=== PATIENT | female | born 1945 | race Caucasian/White ===

== ENCOUNTER → 2017-05-29 | Outpatient (CLI) | payer OTHER, MEDICAID ==
[2014-07-20 16:23] VITALS: BP 150/94
--- NOTE | 2017-05-29 14:10 | CT ---
HISTORY: Flank pain, hematuria Study: CT abdomen pelvis without contrast Comparison: 08/11/2014 Technique: Axial noncontrast images with coronal and sagittal reformats. Dose reduction procedures we re used with mA/kv adjusted for body size. Findings: The lung bases are clear. The liver, spleen, adrenal glands, and pancreas are within normal limits to the limitations of an unenhanced examination. No opaque stones are visible within the gallbladder. T he kidneys are unobstructed and without stones. No ureteral calculi are identified. Calcific atherosc lerotic changes present in a nondilated abdominal aorta. No enlarged intraperitoneal or retroperitone al lymphadenopathy is identified. There are no findings suggestive of diverticulitis or colitis. The appendix is normal. Examination of the pelvis demonstrated no evidence for pelvic masses, pelvic flui d, or pelvic lymphadenopathy. No bladder abnormality is identified. No lytic or blastic skeletal lesi ons are identified. IMPRESSION: No evidence for obstructing renal or ureteral calculi No significant abnormality to the limitations of an examination performed without intravenous and wit hout oral contrast. Reported By:
== END ==
LOC: RAD 12:17
PROVIDERS: ATTEND Internal Medicine
DX: R30.0 Dysuria (principal); R31.9 Hematuria, unspecified; R10.84 Generalized abdominal pain
CPT/HCPCS: 74176

== ENCOUNTER 2022-05-07 11:44 | Observation (INO) ==
[2022-05-07] MEDS ORDERED: NS 250 ML IV 250 ML IV ONE (16:19)
[2022-05-07] MEDS ORDERED: ZOFRAN INJ 4 MG VIAL IVP PRN (16:19)
[2022-05-07 16:55] LABS: BASOPHILS % (AUTO) 0.8 % (0.2-1.0); EOSINOPHILS # (AUTO) 0.1 x10^3/uL (0.0-0.2); EOSINOPHILS % (AUTO) 1.7 % (0.9-2.9); HEMATOCRIT 28.7 % (36.0-47.0); HEMOGLOBIN 9.5 g/dL (12.0-16.0); LYMPHOCYTES # (AUTO) 1.6 X10^3/uL (1.3-2.9); LYMPHOCYTES % (AUTO) 26.1 % (21.0-51.0); MEAN CORPUSCULAR HEMOGLOBIN 30.1 pg (27.0-34.0); MEAN CORPUSCULAR HGB CONC 33.1 g/dL (33.0-35.0); MEAN CORPUSCULAR VOLUME 90.8 fL (80.0-100.0); MEAN PLATELET VOLUME 9.4 fL (7.4-11.0); MONOCYTES # (AUTO) 0.3 x10^3/uL (0.3-0.8); MONOCYTES % (AUTO) 5.6 % (0.0-13.0); NEUTROPHILS % (AUTO) 65.8 % (42.0-75.0); RED BLOOD COUNT 3.16 X10^6/uL (3.5-5.4); WHITE BLOOD COUNT 6.1 X10^3/uL (3.6-10.0)
[2022-05-07 17:03] LABS: ALANINE AMINOTRANSFERASE 18 Units/L (12-78); ALBUMIN 3.4 g/dL (3.4-5.0); ALKALINE PHOSPHATASE 69 Units/L (46-116); AMYLASE 70 Units/L (25-115); ASPARTATE AMINO TRANSFERASE 18 Units/L (15-37); BLOOD UREA NITROGEN 34 mg/dL (7-18); CALCIUM 8.1 mg/dL (8.5-10.1); CARBON DIOXIDE 25.7 mmol/L (21-32); CHLORIDE 105 mmol/L (98-107); CREATININE 2.53 mg/dL (0.55-1.02); LIPASE 170 Units/L (73-393); SODIUM 139 mmol/L (136-145); TOTAL PROTEIN 6.6 g/dL (6.4-8.2); eGFR NON BLACK RACES 20 (>60)
[2022-05-07] MEDS: NS 1,000 ML IV 1,000 ML IV SCH (17:16)
[2022-05-07 19:16] LABS: BILIRUBIN,URINE NEGATIVE (NEGATIVE); BLOOD/HEMOGLOBIN,URINE 1+ (NEGATIVE); GLUCOSE, URINE NEGATIVE (NEGATIVE); KETONES,URINE NEGATIVE (NEGATIVE); LEUKOCYTE ESTERASE ,URINE NEGATIVE (NEGATIVE); NITRITES,URINE NEGATIVE (NEGATIVE); PROTEIN,URINE 1+ (NEGATIVE); UROBILINOGEN,URINE NORMAL (NORMAL)
[2022-05-07 19:27] LABS: APPEARANCE,URINE CLEAR (CLEAR); BACTERIA,URINE NEGATIVE /HPF (NEGATIVE); COLOR,URINE YELLOW (YELLOW); RBC,URINE 0-2 /HPF (0-3); SQUAMOUS EPITHELIAL CELL,UR RARE /HPF (NEGATIVE)
--- NOTE | 2022-05-07 20:45 | EKG ---
Test Reason : sob Blood Pressure : */* mmHG Vent. Rate : 72 BPM Atrial Rate : 72 BPM P-R Int : 132 ms QRS Dur : 140 ms QT Int : 434 ms P-R-T Axes : 42 -23 141 degrees QTc Int : 475 ms Atrial-paced rhythm with premature atrial complexes Left bundle branch block Abnormal ECG No previous ECGs available Confirmed by Giovanni Samuels ([id number]) on 05/08/2022 1:05:38 PM Referred By: Confirmed By: Giovanni Samuels
[2022-05-08 05:07] LABS: BASOPHILS % (AUTO) 0.5 % (0.2-1.0); EOSINOPHILS # (AUTO) 0.1 x10^3/uL (0.0-0.2); EOSINOPHILS % (AUTO) 2.3 % (0.9-2.9); HEMATOCRIT 28.3 % (36.0-47.0); HEMOGLOBIN 9.5 g/dL (12.0-16.0); LYMPHOCYTES # (AUTO) 1.8 X10^3/uL (1.3-2.9); LYMPHOCYTES % (AUTO) 32.3 % (21.0-51.0); MEAN CORPUSCULAR HEMOGLOBIN 30.3 pg (27.0-34.0); MEAN CORPUSCULAR HGB CONC 33.7 g/dL (33.0-35.0); MEAN PLATELET VOLUME 9.3 fL (7.4-11.0); MONOCYTES # (AUTO) 0.5 x10^3/uL (0.3-0.8); MONOCYTES % (AUTO) 7.9 % (0.0-13.0); NEUTROPHILS # (AUTO) 3.3 x10^3/uL (2.2-4.8); RED BLOOD COUNT 3.15 X10^6/uL (3.5-5.4); RED CELL DISTRIBUTION WIDTH 15.9 % (11.6-16.5); WHITE BLOOD COUNT 5.7 X10^3/uL (3.6-10.0)
[2022-05-08 05:14] LABS: ALANINE AMINOTRANSFERASE 14 Units/L (12-78); ALBUMIN 2.9 g/dL (3.4-5.0); ALKALINE PHOSPHATASE 65 Units/L (46-116); ASPARTATE AMINO TRANSFERASE 14 Units/L (15-37); BLOOD UREA NITROGEN 27 mg/dL (7-18); CALCIUM 7.9 mg/dL (8.5-10.1); CARBON DIOXIDE 23.4 mmol/L (21-32); CHLORIDE 110 mmol/L (98-107); COR CA(FOR HYPOALB) 8.8 mg/dL (8.5-10.1); CREATININE 2.01 mg/dL (0.55-1.02); SODIUM 142 mmol/L (136-145); TOTAL PROTEIN 5.8 g/dL (6.4-8.2); eGFR NON BLACK RACES 26 (>60)
[2022-05-08] MEDS: NS 1,000 ML IV 1,000 ML IV SCH ×2 (06:25→23:04)
--- NOTE | 2022-05-08 06:39 | RAD ---
HISTORYAcute on chronic renal failureSTUDYKUBCOMPARISONNoneF INDINGSThe abdominal gas pattern is nonspecific and nonobstructive. No abnormal masses or abnormal calcifications are identified. Regional skeleton is intact.IMPRESSIONUnremarkable KUBElectronically signed by: LEANA SAUNDERS (May 08, 2022 06:38:06)
[2022-05-08] MEDS: LOVENOX INJ 30 MG SYR SC SCH (10:14)
[2022-05-08] MEDS ORDERED: ULTRAM PO PRN (10:57)
[2022-05-08] MEDS ORDERED: ZOFRAN TAB 4 MG PO PRN (10:57)
[2022-05-08] MEDS: TOPROL XL PO SCH (12:34)
[2022-05-08] MEDS: SYNTHROID 50 mcg TAB PO SCH (12:34)
[2022-05-08] MEDS: COZAAR PO SCH (12:34)
[2022-05-08] MEDS: FOLIC ACID TAB 1 MG PO SCH (12:34)
[2022-05-08] MEDS: PEPCID TAB 20 MG PO SCH ×2 (12:35→20:39)
[2022-05-08 14:58] VITALS: BMI 21.0
--- NOTE | 2022-05-08 15:17 | CT ---
HISTORYDIZZINESS, WEAKNESS, NEAR SYNCOPESTUDYBRAIN W/O CONCOMPARISONHead CT 10/16/2021TECHNIQUEMultiple CT axial images of the head were obtained without IV contrast. Coronal and sagittal images were reconstructed. Dose reduction techniques included Automated Exposure Control (AEC) and adjustment of mA and kV.FINDINGSAge-related findings include central and cortical atrophy with areas of low density in the periventricular white matter compatible with micro-ischemic changes. 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 Otherwise carlson and white matter have normal differentiation. There is no mass, shift, or hemorrhage. Cerebellar tonsils are at an appropriate level.IMPRESSION1. No acute findingElectronically signed by: Carroll Diaz (May 08, 2022 15:15:56)
--- NOTE | 2022-05-08 17:33 | CT ---
HISTORYABD PAIN, N/VSTUDYABDOMEN/PELVIS W/O CONCOMPARISONCT abdomen and pelvis dated 01/13/2022TECHNIQUEAxial images through the abdomen and pelvis were perform without intravenous contrast. CT scan was performed following ALARA (As low as Reasonably Achievable).Coronal and Sagittal reformatted images were performed.FINDINGSThe lung bases demonstrate minimal atelectasis in the right lower lobeThe liver, spleen and pancreas demonstrate no focal abnormalities patient is status post cholecystectomy the stomach is not distended no intra or extrahepatic biliary dilatation no adrenal masses. There bilateral normal-sized kidneys without hydronephrosis no obstructive ureteral stones. No renal calculus.Pelvis: No free fluid the uterus is not present, no adnexal masses, the urinary bladder is decompressed, no diverticulitis. There is an umbilical hernia with a neck of approximately 2 centimetersNo abnormal dilated small bowel loops. No free air.No evidence of colitis. No evidence of mucosal thickening.No secondary signs of appendicitis.Bone windows no evidence of aggressive bone lesions. No acute fractures.IMPRESSIONNo acute intra-abdominal abnormalities.Electronically signed by: Jailyn Rose (May 08, 2022 17:31:22)
[2022-05-08] MEDS ORDERED: LIPITOR TAB 40 MG PO SCH (21:00)
[2022-05-08] MEDS ORDERED: NORVASC TAB 5 MG PO SCH (21:00)
--- NOTE | 2022-05-08 21:55 | DR.UPDATE ---
H&P Update Prescription drug monitoring program results: PDMP reviewed and no concerns identified H&P Reviewed: Yes Any changes to H&P?: Yes Changes noted:: IS A 77 YEAR OLD PATIENT OF OURS. SHE PRESENTED TO THE OFFICE WITH COMPLAINTS OF FATIGUE, LOSS OF ENERGY, GENERALIZED WEAKNESS, DIZZINESS, NAUSEA, VOMITING, AND ABDOMINAL PAIN. PATIENT REPORTED THAT ABDOMINAL PAIN WAS DIFFUSE, INTERMITTENT, AND CHARACTERIZED DULL AND CRAMPING. SHE RATE PAIN A 7/10 ON ARRIVAL. PATIENT REPORTS THAT SHE HAS BEEN UNABLE TO TOLERATE FOOD OR DRINK. PATIENT ADMITS TO SEVERAL NEAR SYNCOPAL EPISODES, BOTH WHILE SITTING AND STANDING. DECISION WAS MADE TO ADMIT PATIENT TO THE HOSPITAL OBSERVATION STATUS FOR FURTHER EVALUATION AND TREATMENT. ON ARRIVAL TO THE HOSPITAL, VITALS WERE: 97.2-82-20-100%-130/59. LABS WERE OBTAINED. WBC 6.1, RBC 3.16, HGB 9.5, HCT 28.7, PLT COUNT 175, SODIUM 139, POTASSIUM 4.0, CHLORIDE 105, BUN 34, CREATININE 2.53, GLUCOSE 92, CALCIUM 8.1, TOTAL BILI 0.30, AST 18, ALT 18, ALK PHOS 69, CREATINE KINASE 58, TROPONIN 22.9, TOTAL PROTEIN 6.6, ALBUMIN 3.4. A URINALYSIS WAS OBTAINED AND WAS UNREMARKABLE. A KUB WAS OBTAINED AND WAS UNREMARKABLE. EKG REVEALED: Atrial-paced rhythm with premature atrial complexes. HR 72 BPM. SHE WAS STARTED ON NORMAL SALINE AT 75 ML/HR, ZOFRAN 4MG IV Q4H PRN, LOVENOX 30MG SC DAILY, AND HER HOME MEDICATIONS WERE RESUMED. WE WILL OBTAIN A BRAIN CT AND AN ABDOMEN/PELVIS CT WITHOUT CONTRAST. OTHERWISE, WE WILL FOLLOW-UP WITH AM LABS AND CONTINUE TO MONITOR. TIME SPENT ON CLINICAL ASSESSMENT, REVIEWING LABS AND IMAGING, DECISION MAKING, AND DOCUMENTATION GREATER THAN 75 MINUTES. DX ACUTE ON CHRONIC RENAL FAILURE, NEAR SYNCOPE, GENERALIZED WEAKNESS. Patient was examined?: Yes
[2022-05-08] MEDS ORDERED: MAALOX or MYLANTA PO PRN (23:55)
[2022-05-09 05:21] LABS: BASOPHILS # (AUTO) 0.1 X10^3/uL (0.0-0.1); BASOPHILS % (AUTO) 1.1 % (0.2-1.0); EOSINOPHILS # (AUTO) 0.2 x10^3/uL (0.0-0.2); EOSINOPHILS % (AUTO) 2.6 % (0.9-2.9); HEMATOCRIT 31.1 % (36.0-47.0); HEMOGLOBIN 10.5 g/dL (12.0-16.0); LYMPHOCYTES # (AUTO) 1.7 X10^3/uL (1.3-2.9); LYMPHOCYTES % (AUTO) 22.7 % (21.0-51.0); MEAN CORPUSCULAR HEMOGLOBIN 30.3 pg (27.0-34.0); MEAN CORPUSCULAR HGB CONC 33.6 g/dL (33.0-35.0); MEAN CORPUSCULAR VOLUME 90.2 fL (80.0-100.0); MEAN PLATELET VOLUME 9.4 fL (7.4-11.0); MONOCYTES # (AUTO) 0.5 x10^3/uL (0.3-0.8); MONOCYTES % (AUTO) 6.9 % (0.0-13.0); NEUTROPHILS # (AUTO) 4.9 x10^3/uL (2.2-4.8); NEUTROPHILS % (AUTO) 66.7 % (42.0-75.0); RED BLOOD COUNT 3.45 X10^6/uL (3.5-5.4); RED CELL DISTRIBUTION WIDTH 15.9 % (11.6-16.5); WHITE BLOOD COUNT 7.3 X10^3/uL (3.6-10.0)
[2022-05-09 05:36] LABS: ALANINE AMINOTRANSFERASE 18 Units/L (12-78); ALBUMIN 3.5 g/dL (3.4-5.0); ALKALINE PHOSPHATASE 79 Units/L (46-116); ASPARTATE AMINO TRANSFERASE 20 Units/L (15-37); BLOOD UREA NITROGEN 18 mg/dL (7-18); CALCIUM 8.2 mg/dL (8.5-10.1); CARBON DIOXIDE 26.2 mmol/L (21-32); CHLORIDE 108 mmol/L (98-107); CREATININE 1.58 mg/dL (0.55-1.02); SODIUM 142 mmol/L (136-145); TOTAL PROTEIN 6.9 g/dL (6.4-8.2); eGFR NON BLACK RACES 34 (>60)
[2022-05-09 08:12] VITALS: BP 150/62
[2022-05-09] MEDS ORDERED: PEPCID TAB 20 MG PO SCH (09:00)
[2022-05-09] MEDS: SYNTHROID 50 mcg TAB PO SCH (09:14)
[2022-05-09] MEDS: COZAAR PO SCH (09:14)
[2022-05-09] MEDS: TOPROL XL PO SCH (09:14)
[2022-05-09] MEDS: FOLIC ACID TAB 1 MG PO SCH (09:14)
[2022-05-09] MEDS: LOVENOX INJ 30 MG SYR SC SCH (09:15)
[2022-05-09] MEDS: NS 1,000 ML IV 1,000 ML IV SCH (10:36)
== END 2022-05-09 10:35 | disposition home or self-care (01) ==
LOC: MED/SURG
PROVIDERS: ADMIT Internal Medicine; ATTEND Internal Medicine
DX: R53.1 Weakness; R26.2 Difficulty in walking, not elsewhere classified; R11.0 Nausea; R41.82 Altered mental status, unspecified; N17.9 Acute kidney failure, unspecified; R13.10 Dysphagia, unspecified; R10.9 Unspecified abdominal pain; J98.11 Atelectasis; R55 Syncope and collapse; R06.02 Shortness of breath; Z98.62 Peripheral vascular angioplasty status; N18.9 Chronic kidney disease, unspecified; R94.31 Abnormal electrocardiogram [ECG] [EKG]

== ENCOUNTER 2023-06-23 06:41 | Observation (INO) ==
--- NOTE | 2023-06-23 06:53 | DR.SOBA ---
HPI <CB LÓPEZ - Last Filed: 06/23/23 08:04> Time Seen Time Seen by Provider: 06/23/23 06:52 HPI Comment HPI Comment: Increasing shortness of breath since yesterday and lower extremity edema since x 1 week. Complaints Chief Complaint Doctors Comments: Patient is 78-year-old female with history of congestive heart failure coronary artery disease and hypertension in the emergency room with increasing shortness of breath since yesterday and lower extremity edema for about a week. Patient denies chest pain nausea vomiting or dysuria. Reviewed Nurses Notes Reviewed: Yes PMH <CB LÓPEZ - Last Filed: 06/23/23 08:04> PMH Past Medical History: Anemia, Anxiety, Arthritis, CHF, Coronary Artery Disease, GERD, Hypertension, Kidney Stones, [place] and Renal Disease Past Surgical History: Yes Surgical History: Angioplasty/Stents, Cholecystectomy, Hysterectomy, Ortho Surgery and Lithotripsy Family History Family Medical History: Cancer and Hypertension Social History Do you use any recreational Drugs:: No ROS <CB LÓPEZ - Last Filed: 06/23/23 08:04> Review of Systems Constitutional: Weakness and Fatigue; negative Fever Eyes: No Symptoms Reported ENTM: negative Nose Discharge or Nose Congestion Respiratoy: Moist Cough, Short of Breath and Wheezing Cardiovascular: Edema; negative Chest Pain Gastrointestinal/Abdominal: No Symptoms Reported; negative Abdominal Pain, Diarrhea, Nausea or Vomiting Genitourinary: No Symptoms Reported; negative Dysuria Neurological: Weakness; negative Headache or Dizziness Musculoskeletal: No Symptoms Reported; negative Muscle Pain Integumentary: No Symptoms Reported; negative Rash or Juandice Hematologic/Lymphatic: No Symptoms Reported, Easy Bleeding and Easy Bruising Endocrine: No Symptoms Reported; negative Increased Thirst or Increased Urine Psychiatric: No Symptoms Reported All Other Systems: Reviewed and Negative PE <CB LÓPEZ - Last Filed: 06/23/23 08:04> Vital Signs Vitals: Vital Signs Temperature 97.7 F Pulse Rate 69 Pulse Rate 74 Pulse Rate 126 Pulse Rate 69 Pulse Rate 69 Pulse Rate 69 Pulse Rate 69 Pulse Rate 74 Pulse Rate 69 Pulse Rate 70 Pulse Rate 70 Pulse Rate 70 Pulse Rate 71 Pulse Rate 73 Respiratory Rate 18 Respiratory Rate 14 Respiratory Rate 34 Respiratory Rate 20 Respiratory Rate 16 Respiratory Rate 29 Respiratory Rate 16 Respiratory Rate 7 Respiratory Rate 22 Respiratory Rate 22 Blood Pressure 167/66 Blood Pressure 179/81 Blood Pressure 200/99 Blood Pressure 204/98 Blood Pressure 209/98 Blood Pressure 214/103 Blood Pressure 208/94 Blood Pressure 222/102 Blood Pressure 204/90 O2 Sat by Pulse Oximetry 97 O2 Sat by Pulse Oximetry 96 O2 Sat by Pulse Oximetry 96 O2 Sat by Pulse Oximetry 96 O2 Sat by Pulse Oximetry 97 O2 Sat by Pulse Oximetry 96 O2 Sat by Pulse Oximetry 95 O2 Sat by Pulse Oximetry 89 O2 Sat by Pulse Oximetry 95 O2 Sat by Pulse Oximetry 97 O2 Sat by Pulse Oximetry 97 O2 Sat by Pulse Oximetry 96 O2 Sat by Pulse Oximetry 91 O2 Sat by Pulse Oximetry 93 General Limitations: No Limitations General Appearance: Alert and In Distress Head Head Exam: Normal Inspection Eyes Eye exam: Normal Appearance; negative Scleral Icterus or Conjunctival Injection ENT ENT Exam: Normal Exam, Normal Oropharynx, Normal External Ear Exam and TM's Normal Bilaterally Neck Neck Exam: Normal Inspection and Trachea Midline; negative Tenderness Chest Chest Inspection: Normal Inspection and Symmetric Chest Wall Rise; negative Tenderness Respiratory Respiratory Exam: Accessory Muscle Use and Respiratory Distress; negative Chest Wall Tenderness Respiratory Exam: Bilateral: Wheezing and Bilateral: Rhonchi Cardiovascular Cardiovascular Exam: Regular Rate, Normal Rhythm and Normal Heart Sounds; n egative Systolic Murmur or Diastolic Murmur Abdominal Exam Abdominal Exam: Normal Inspection, Normal Bowel Sounds and Soft; negative Tenderness Extremities Extremities Exam: Normal Capillary Refill and Edema; negative Tenderness Back Back Exam: Normal Inspection; negative (R) CVA Tenderness or (L) CVA Tenderness Neurologic Neurological Exam: Alert and Oriented X3; negative Motor Sensory Deficit Psychiatric Psychiatric Exam: Normal Affect and Normal Mood Skin Skin Exam: Warm; negative Rash <Ramiro Farooq - Last Filed: 06/23/23 09:32> Vital Signs Vitals: Vital Signs Temperature 97.7 F Pulse Rate 69 Pulse Rate 74 Pulse Rate 126 Pulse Rate 69 Pulse Rate 69 Pulse Rate 69 Pulse Rate 69 Pulse Rate 74 Pulse Rate 69 Pulse Rate 70 Pulse Rate 70 Pulse Rate 70 Pulse Rate 71 Pulse Rate 73 Respiratory Rate 18 Respiratory Rate 14 Respiratory Rate 34 Respiratory Rate 20 Respiratory Rate 16 Respiratory Rate 29 Respiratory Rate 16 Respiratory Rate 7 Respiratory Rate 22 Respiratory Rate 22 Blood Pressure 167/66 Blood Pressure 179/81 Blood Pressure 200/99 Blood Pressure 204/98 Blood Pressure 209/98 Blood Pressure 214/103 Blood Pressure 208/94 Blood Pressure 222/102 Blood Pressure 204/90 O2 Sat by Pulse Oximetry 97 O2 Sat by Pulse Oximetry 96 O2 Sat by Pulse Oximetry 96 O2 Sat by Pulse Oximetry 96 O2 Sat by Pulse Oximetry 97 O2 Sat by Pulse Oximetry 96 O2 Sat by Pulse Oximetry 95 O2 Sat by Pulse Oximetry 89 O2 Sat by Pulse Oximetry 95 O2 Sat by Pulse Oximetry 97 O2 Sat by Pulse Oximetry 97 O2 Sat by Pulse Oximetry 96 O2 Sat by Pulse Oximetry 91 O2 Sat by Pulse Oximetry 93 MDM <CB LÓPEZ - Last Filed: 06/23/23 08:04> Differential Diagnosis Differential Diagnosis: Bronchitis, Dysrhythmia, Hypertensive Emergency, Hyponatremia, Mycardial Infarction, Pneumonia, Pneumothorax, Respiratory Insufficiency and URI COURSE <CB LÓPEZ - Last Filed: 06/23/23 08:04> Treatment Treatment: See orders done while patient was in the emergency room. Chest x-ray report discussed with patient and her daughter. EKG noted and discussed with patient. Patient was turned over to Dr. Lyndon Farooq at 8 AM. <Ramiro Farooq - Last Filed: 06/23/23 09:32> Treatment Treatment: See orders done while patient was in the emergency room. Chest x-ray report discussed with patient and her daughter. EKG noted and discussed with patient. Patient was turned over to Dr. Lyndon Farooq at 8 AM. 0853 -patient signed over to me. Remained stable on 2 L nasal cannula. Patient was given a round of home meds for blood pressure, plus IV Lasix. Blood pressure still elevated with systolic around 200, given IV hydralazine, 10 mg. Labs show hemoglobin 8.8, consistent with chronic anemia. Chemistries overall acceptable. BNP elevated 2210, consistent with CHF. Chest x-ray does show CHF changes. Urinalysis was negative. Troponin acceptable at 38. Recommend admission for further treatment with IV diuretics and oxygen therapy. Discussed with Dr. Montoya, covering for her attending. He accepts the admission. Added additional testing to further evaluate her chronic anemia. 0931 - + worsenign CP prior to transfer to floor. Repeat EKG, no cvhange, + LBBB. Given IV morphine/zofran. Repeat troponin pending. ROR <CB LÓPEZ - Last Filed: 06/23/23 08:04> Labs Reviewed 06/23/23 07:10 06/23/23 07:10 Laboratory: WBC 8.2 X10^3/uL (3.6-10.0) 06/23/23 07:10 RBC 2.81 X10^6/uL (3.5-5.4) L 06/23/23 07:10 Hgb 8.8 g/dL (12.0-16.0) L 06/23/23 07:10 Hct 26.5 % (36.0-47.0) L 06/23/23 07:10 MCV 94.4 fL (80.0-100.0) 06/23/23 07:10 MCH 31.4 pg (27.0-34.0) 06/23/23 07:10 MCHC 33.2 g/dL (33.0-35.0) 06/23/23 07:10 RDW 17.8 % (11.6-16.5) H 06/23/23 07:10 Plt Count 303 X10^3/uL (150.0-450.0) 06/23/23 07:10 MPV 8.0 fL (7.4-11.0) 06/23/23 07:10 Neut % (Auto) 74.7 % (42.0-75.0) 06/23/23 07:10 Lymph % (Auto) 15.4 % (21.0-51.0) L 06/23/23 07:10 [place] % (Auto) 6.6 % (0.0-13.0) 06/23/23 07:10 Eos % (Auto) 2.2 % (0.9-2.9) 06/23/23 07:10 Baso % (Auto) 1.1 % (0.2-1.0) H 06/23/23 07:10 Neut # (Auto) 6.1 x10^3/uL (2.2-4.8) H 06/23/23 07:10 Lymph # (Auto) 1.3 X10^3/uL (1.3-2.9) 06/23/23 07:10 [place] # (Auto) 0.5 x10^3/uL (0.3-0.8) 06/23/23 07:10 Eos # (Auto) 0.2 x10^3/uL (0.0-0.2) 06/23/23 07:10 Baso # (Auto) 0.1 X10^3/uL (0.0-0.1) 06/23/23 07:10 Absolute Nucleated RBC 0.0 /100WBC 06/23/23 07:10 Sodium 142 mmol/L (136-145) 06/23/23 07:10 Corrected Sodium TNP 06/23/23 07:10 Potassium 3.5 mmol/L (3.5-5.1) 06/23/23 07:10 Chloride 103 mmol/L (98-107) 06/23/23 07:10 Carbon Dioxide 35.5 mmol/L (21-32) H 06/23/23 07:10 BUN 19 mg/dL (7-18) H 06/23/23 07:10 Creatinine 1.86 mg/dL (0.55-1.02) H 06/23/23 07:10 Est GFR (MDRD) Af Amer 34 (>60) L 06/23/23 07:10 Est GFR (MDRD) Non-Af 28 (>60) L 06/23/23 07:10 Glucose 90 mg/dL (65-99) 06/23/23 07:10 Calcium 8.3 mg/dL (8.5-10.1) L 06/23/23 07:10 Corrected Calcium 9.2 mg/dL (8.5-10.1) 06/23/23 07:10 Total Bilirubin 0.50 mg/dL (0.2-1.0) 06/23/23 07:10 AST 19 Units/L (15-37) 06/23/23 07:10 ALT 23 Units/L (12-78) 06/23/23 07:10 Alkaline Phosphatase 81 Units/L (46-116) 06/23/23 07:10 Creatine Kinase 107 Units/L (26-192) 06/23/23 07:10 Troponin I High Sens 38.5 ng/L (4.0-60.0) 06/23/23 07:10 B-Natriuretic Peptide 2210 pg/mL (0-79) H 06/23/23 07:10 Total Protein 6.2 g/dL (6.4-8.2) L 06/23/23 07:10 Albumin 2.9 g/dL (3.4-5.0) L 06/23/23 07:10 Globulin 3.3 g/dL (2.5-4.5) 06/23/23 07:10 Albumin/Globulin Ratio 0.9 Ratio (1.1-2.1) L 06/23/23 07:10 Specimen Type Clean catch urine 06/23/23 07:45 Urine Color Straw (YELLOW) 06/23/23 07:45 Urine Appearance Clear (CLEAR) 06/23/23 07:45 Urine pH 7.0 (5.0 - 8.0) 06/23/23 07:45 Ur Specific [place] 1.015 (1.000-1.030) 06/23/23 07:45 Urine Protein Negative (NEGATIVE) 06/23/23 07:45 Urine Glucose (UA) Negative (NEGATIVE) 06/23/23 07:45 Urine Ketones Negative (NEGATIVE) 06/23/23 07:45 Urine Blood Negative (NEGATIVE) 06/23/23 07:45 Urine Nitrite Negative (NEGATIVE) 06/23/23 07:45 Urine Bilirubin Negative (NEGATIVE) 06/23/23 07:45 Urine Urobilinogen Normal (NORMAL) 06/23/23 07:45 Ur Leukocyte Esterase Negative (NEGATIVE) 06/23/23 07:45 XRAY XRAY Interpreted by: Radiologist (Report noted.) EKG Rate: 70 [place]: Normal Rhythm: Paced Block: LBBB Hypertrophy: LVH ST: Old (QT changes.) <Ramiro Farooq - Last Filed: 06/23/23 09:32> Labs Reviewed Laboratory: WBC 8.2 X10^3/uL (3.6-10.0) 06/23/23 07:10 RBC 2.81 X10^6/uL (3.5-5.4) L 06/23/23 07:10 Hgb 8.8 g/dL (12.0-16.0) L 06/23/23 07:10 Hct 26.5 % (36.0-47.0) L 06/23/23 07:10 MCV 94.4 fL (80.0-100.0) 06/23/23 07:10 MCH 31.4 pg (27.0-34.0) 06/23/23 07:10 MCHC 33.2 g/dL (33.0-35.0) 06/23/23 07:10 RDW 17.8 % (11.6-16.5) H 06/23/23 07:10 Plt Count 303 X10^3/uL (150.0-450.0) 06/23/23 07:10 MPV 8.0 fL (7.4-11.0) 06/23/23 07:10 Neut % (Auto) 74.7 % (42.0-75.0) 06/23/23 07:10 Lymph % (Auto) 15.4 % (21.0-51.0) L 06/23/23 07:10 [place] % (Auto) 6.6 % (0.0-13.0) 06/23/23 07:10 Eos % (Auto) 2.2 % (0.9-2.9) 06/23/23 07:10 Baso % (Auto) 1.1 % (0.2-1.0) H 06/23/23 07:10 Neut # (Auto) 6.1 x10^3/uL (2.2-4.8) H 06/23/23 07:10 Lymph # (Auto) 1.3 X10^3/uL (1.3-2.9) 06/23/23 07:10 [place] # (Auto) 0.5 x10^3/uL (0.3-0.8) 06/23/23 07:10 Eos # (Auto) 0.2 x10^3/uL (0.0-0.2) 06/23/23 07:10 Baso # (Auto) 0.1 X10^3/uL (0.0-0.1) 06/23/23 07:10 Absolute Nucleated RBC 0.0 /100WBC 06/23/23 07:10 Sodium 142 mmol/L (136-145) 06/23/23 07:10 Corrected Sodium TNP 06/23/23 07:10 Potassium 3.5 mmol/L (3.5-5.1) 06/23/23 07:10 Chloride 103 mmol/L (98-107) 06/23/23 07:10 Carbon Dioxide 35.5 mmol/L (21-32) H 06/23/23 07:10 BUN 19 mg/dL (7-18) H 06/23/23 07:10 Creatinine 1.86 mg/dL (0.55-1.02) H 06/23/23 07:10 Est GFR (MDRD) Af Amer 34 (>60) L 06/23/23 07:10 Est GFR (MDRD) Non-Af 28 (>60) L 06/23/23 07:10 Glucose 90 mg/dL (65-99) 06/23/23 07:10 Calcium 8.3 mg/dL (8.5-10.1) L 06/23/23 07:10 Corrected Calcium 9.2 mg/dL (8.5-10.1) 06/23/23 07:10 Total Bilirubin 0.50 mg/dL (0.2-1.0) 06/23/23 07:10 AST 19 Units/L (15-37) 06/23/23 07:10 ALT 23 Units/L (12-78) 06/23/23 07:10 Alkaline Phosphatase 81 Units/L (46-116) 06/23/23 07:10 Creatine Kinase 107 Units/L (26-192) 06/23/23 07:10 Troponin I High Sens 38.5 ng/L (4.0-60.0) 06/23/23 07:10 B-Natriuretic Peptide 2210 pg/mL (0-79) H 06/23/23 07:10 Total Protein 6.2 g/dL (6.4-8.2) L 06/23/23 07:10 Albumin 2.9 g/dL (3.4-5.0) L 06/23/23 07:10 Globulin 3.3 g/dL (2.5-4.5) 06/23/23 07:10 Albumin/Globulin Ratio 0.9 Ratio (1.1-2.1) L 06/23/23 07:10 Specimen Type Clean catch urine 06/23/23 07:45 Urine Color Straw (YELLOW) 06/23/23 07:45 Urine Appearance Clear (CLEAR) 06/23/23 07:45 Urine pH 7.0 (5.0 - 8.0) 06/23/23 07:45 Ur Specific [place] 1.015 (1.000-1.030) 06/23/23 07:45 Urine Protein Negative (NEGATIVE) 06/23/23 07:45 Urine Glucose (UA) Negative (NEGATIVE) 06/23/23 07:45 Urine Ketones Negative (NEGATIVE) 06/23/23 07:45 Urine Blood Negative (NEGATIVE) 06/23/23 07:45 Urine Nitrite Negative (NEGATIVE) 06/23/23 07:45 Urine Bilirubin Negative (NEGATIVE) 06/23/23 07:45 Urine Urobilinogen Normal (NORMAL) 06/23/23 07:45 Ur Leukocyte Esterase Negative (NEGATIVE) 06/23/23 07:45 Opioid <CB LÓPEZ - Last Filed: 06/23/23 08:04> Opioid Risk Tool Age (Gus box if 16-45): No History of Preadolescent Sexual Abuse: No Total: 0 Total Score Risk Category: Low Risk Copyright: Hayden HICKEY predicting aberrant behaviors <Ramiro Farooq - Last Filed: 06/23/23 09:32> Opioid Risk Tool Total: 0 Total Score Risk Category: Low Risk Discharge Plan Diagnosis Discharge Problem: CHF (congestive heart failure), SOB (shortness of breath), Hypertension Discharge Plan Patient Disposition: ADMITTED INPATIENT Condition: Stable Orders to Discharge Patient Discharge Orders: Transfer (Routine); Ordered 06/23/23 Ordered By: Ramiro Farooq
[2023-06-23] MEDS ORDERED: LASIX IVP ONE ×2 (07:06→07:17)
--- NOTE | 2023-06-23 07:16 | EKG ---
Test Reason : HTN. Blood Pressure : */* mmHG Vent. Rate : 70 BPM Atrial Rate : 70 BPM P-R Int : 152 ms QRS Dur : 150 ms QT Int : 472 ms P-R-T Axes : 36 15 134 degrees QTc Int : 509 ms Atrial-paced rhythm Left bundle branch block Abnormal ECG When compared with ECG of 10-JUN-2023 02:52, Electronic atrial pacemaker has replaced Atrial fibrillation Vent. rate has decreased BY 54 BPM QRS axis shifted right Confirmed by Garcia Vallecillo MD ([id number]) on 06/23/2023 7:59:55 AM Referred By: Confirmed By: Garcia Vallecillo MD
[2023-06-23] MEDS ORDERED: IMDUR PO ONE (07:21)
[2023-06-23] MEDS ORDERED: COZAAR PO ONE (07:22)
[2023-06-23] MEDS ORDERED: TOPROL XL PO ONE (07:23)
[2023-06-23 07:28] LABS: HEMATOCRIT 26.5 % (36.0-47.0); HEMOGLOBIN 8.8 g/dL (12.0-16.0); MEAN CORPUSCULAR HGB CONC 33.2 g/dL (33.0-35.0); MEAN CORPUSCULAR VOLUME 94.4 fL (80.0-100.0); RED BLOOD COUNT 2.81 X10^6/uL (3.5-5.4)
[2023-06-23 07:31] LABS: BASOPHILS # (AUTO) 0.1 X10^3/uL (0.0-0.1); BASOPHILS % (AUTO) 1.1 % (0.2-1.0); EOSINOPHILS # (AUTO) 0.2 x10^3/uL (0.0-0.2); EOSINOPHILS % (AUTO) 2.2 % (0.9-2.9); LYMPHOCYTES # (AUTO) 1.3 X10^3/uL (1.3-2.9); LYMPHOCYTES % (AUTO) 15.4 % (21.0-51.0); MEAN CORPUSCULAR HEMOGLOBIN 31.4 pg (27.0-34.0); MONOCYTES # (AUTO) 0.5 x10^3/uL (0.3-0.8); MONOCYTES % (AUTO) 6.6 % (0.0-13.0); NEUTROPHILS # (AUTO) 6.1 x10^3/uL (2.2-4.8); NEUTROPHILS % (AUTO) 74.7 % (42.0-75.0); PLATELET COUNT 303 X10^3/uL (150.0-450.0); RED CELL DISTRIBUTION WIDTH 17.8 % (11.6-16.5); WHITE BLOOD COUNT 8.2 X10^3/uL (3.6-10.0)
--- NOTE | 2023-06-23 07:31 | RAD ---
EXAM:AP chestHISTORY:Short of breath legs swellingCOMPARISON:06/10/2023FINDINGS:Th e heart is now borderline to slightly enlarged with stable pacemaker position. Increasing pulmonary congestion and interstitial prominence is noted especially in the right lung. No consolidation or pleural fluid is noted.IMPRESSION:Findings described are concerning for mild developing CHF.THIS IS AN ELECTRONICALLY VERIFIED FINAL REPORT06/23/2023 7:27 AM - Electronically signed by Eloy Love MD
[2023-06-23 07:40] LABS: ALANINE AMINOTRANSFERASE 23 Units/L (12-78); ALBUMIN 2.9 g/dL (3.4-5.0); ALKALINE PHOSPHATASE 81 Units/L (46-116); ASPARTATE AMINO TRANSFERASE 19 Units/L (15-37); BLOOD UREA NITROGEN 19 mg/dL (7-18); CALCIUM 8.3 mg/dL (8.5-10.1); CARBON DIOXIDE 35.5 mmol/L (21-32); CHLORIDE 103 mmol/L (98-107); COR CA(FOR HYPOALB) 9.2 mg/dL (8.5-10.1); CREATININE 1.86 mg/dL (0.55-1.02); GLUCOSE 90 mg/dL (65-99); POTASSIUM 3.5 mmol/L (3.5-5.1); SODIUM 142 mmol/L (136-145); TOTAL PROTEIN 6.2 g/dL (6.4-8.2); eGFR NON BLACK RACES 28 (>60)
[2023-06-23 07:55] LABS: BILIRUBIN,URINE NEGATIVE (NEGATIVE); BLOOD/HEMOGLOBIN,URINE NEGATIVE (NEGATIVE); GLUCOSE, URINE NEGATIVE (NEGATIVE); KETONES,URINE NEGATIVE (NEGATIVE); LEUKOCYTE ESTERASE ,URINE NEGATIVE (NEGATIVE); NITRITES,URINE NEGATIVE (NEGATIVE); PROTEIN,URINE NEGATIVE (NEGATIVE); UROBILINOGEN,URINE NORMAL (NORMAL)
[2023-06-23 07:58] LABS: APPEARANCE,URINE CLEAR (CLEAR); COLOR,URINE STRAW (YELLOW)
[2023-06-23] MEDS ORDERED: APRESOLINE INJ 20 MG VIAL IVP ONE (08:36)
[2023-06-23] MEDS ORDERED: APRESOLINE INJ 20 MG VIAL ONE (08:37)
[2023-06-23] MEDS ORDERED: MORPHINE SULFATE INJ 4 MG IVP ONE (09:20)
[2023-06-23] MEDS ORDERED: ZOFRAN INJ 4 MG VIAL IVP ONE (09:20)
[2023-06-23] MEDS ORDERED: MORPHINE SULFATE INJ 4 MG ONE (09:22)
[2023-06-23] MEDS ORDERED: ZOFRAN INJ 4 MG VIAL ONE (09:23)
--- NOTE | 2023-06-23 09:29 | EKG ---
Test Reason : Chest pain Blood Pressure : */* mmHG Vent. Rate : 70 BPM Atrial Rate : 70 BPM P-R Int : 152 ms QRS Dur : 148 ms QT Int : 484 ms P-R-T Axes : 29 -42 110 degrees QTc Int : 522 ms Atrial-paced rhythm Left axis deviation Left bundle branch block Abnormal ECG When compared with ECG of 23-JUN-2023 07:02, QRS axis shifted left Confirmed by Garcia Valleicllo MD ([id number]) on 06/24/2023 10:08:38 AM Referred By: Confirmed By: Garcia Vallecillo MD
[2023-06-23] MEDS ORDERED: ULTRAM PO PRN (10:01)
[2023-06-23] MEDS ORDERED: CONSULT PHARMACY - POTASSIUM & MAGNESIUM XX SCH (10:01)
[2023-06-23] MEDS ORDERED: NITROSTAT SL PRN (10:01)
[2023-06-23 10:07] VITALS: BMI 22.1
[2023-06-23] MEDS ORDERED: COMPAZINE PO PRN (10:45)
[2023-06-23] MEDS: FARXIGA PO SCH (10:58)
[2023-06-23] MEDS: ENTRESTO 49/51 MG TABLET PO SCH ×2 (10:58→20:40)
[2023-06-23] MEDS ORDERED: MICRO K EXTEN CAP 10 MEQ PO ONE (11:00)
[2023-06-23] MEDS: MAG-OX TAB PO SCH ×2 (11:38→12:30)
[2023-06-23] MEDS ORDERED: NS 100 ML IV 100 ML with VENOFER 400 MG IV ONE ×2 (12:00)
[2023-06-23] MEDS: LASIX IVP SCH (17:04)
[2023-06-23] MEDS: PriLOSEC PO SCH (20:40)
[2023-06-23] MEDS: TOPROL XL PO SCH (20:40)
[2023-06-23] MEDS ORDERED: COZAAR PO SCH (21:00)
[2023-06-23] MEDS: ELIQUIS PO SCH (21:09)
[2023-06-24 00:33] VITALS: O2SAT 94
[2023-06-24 05:29] LABS: BASOPHILS # (AUTO) 0.1 X10^3/uL (0.0-0.1); EOSINOPHILS # (AUTO) 0.1 x10^3/uL (0.0-0.2); EOSINOPHILS % (AUTO) 2.2 % (0.9-2.9); HEMATOCRIT 28.8 % (36.0-47.0); HEMOGLOBIN 9.4 g/dL (12.0-16.0); LYMPHOCYTES # (AUTO) 0.9 X10^3/uL (1.3-2.9); LYMPHOCYTES % (AUTO) 14.1 % (21.0-51.0); MEAN CORPUSCULAR HEMOGLOBIN 30.9 pg (27.0-34.0); MEAN CORPUSCULAR HGB CONC 32.7 g/dL (33.0-35.0); MEAN CORPUSCULAR VOLUME 94.3 fL (80.0-100.0); MEAN PLATELET VOLUME 8.4 fL (7.4-11.0); MONOCYTES # (AUTO) 0.6 x10^3/uL (0.3-0.8); NEUTROPHILS # (AUTO) 4.9 x10^3/uL (2.2-4.8); NEUTROPHILS % (AUTO) 73.7 % (42.0-75.0); PLATELET COUNT 329 X10^3/uL (150.0-450.0); RED BLOOD COUNT 3.05 X10^6/uL (3.5-5.4); RED CELL DISTRIBUTION WIDTH 18.4 % (11.6-16.5); WHITE BLOOD COUNT 6.7 X10^3/uL (3.6-10.0)
[2023-06-24 05:32] VITALS: PULSE 73
[2023-06-24 05:40] LABS: ALANINE AMINOTRANSFERASE 18 Units/L (12-78); ALBUMIN 2.7 g/dL (3.4-5.0); ALKALINE PHOSPHATASE 74 Units/L (46-116); ASPARTATE AMINO TRANSFERASE 14 Units/L (15-37); BLOOD UREA NITROGEN 20 mg/dL (7-18); CALCIUM 8.5 mg/dL (8.5-10.1); CARBON DIOXIDE 36.7 mmol/L (21-32); CHLORIDE 100 mmol/L (98-107); COR CA(FOR HYPOALB) 9.5 mg/dL (8.5-10.1); CREATININE 1.93 mg/dL (0.55-1.02); GLUCOSE 104 mg/dL (65-99); POTASSIUM 3.1 mmol/L (3.5-5.1); SODIUM 141 mmol/L (136-145); TOTAL PROTEIN 6.1 g/dL (6.4-8.2); eGFR NON BLACK RACES 27 (>60)
--- NOTE | 2023-06-24 06:21 | RAD ---
EXAM:CHEST, 1 VIEWHISTORY:chf;COMPARISON:06/23/2023. br.br.br.br chestFINDINGS:Left chest wall pacemaker with leads in good position. The cardiac and mediastinal contours are normal in size. There is blunting of the left costophrenic sulcus. No consolidation or segmental lung collapse. No pneumothorax.IMPRESSION:Blunted left costophrenic sulcus can be seen with small pleural effusion and pleural scarring.Interval improvement with radiographic resolution of previously described pulmonary edema.THIS IS AN ELECTRONICALLY VERIFIED FINAL REPORT06/24/2023 6:18 AM - Electronically signed by Jalil Soto MD
[2023-06-24] MEDS ORDERED: CONSULT PHARMACY - POTASSIUM & MAGNESIUM XX SCH (07:00)
[2023-06-24 07:55] VITALS: BP 179/86; RESP 18; TEMP 97.8
[2023-06-24] MEDS: ENTRESTO 49/51 MG TABLET PO SCH (08:58)
[2023-06-24] MEDS: ELIQUIS PO SCH (08:58)
[2023-06-24] MEDS: PriLOSEC PO SCH (08:58)
[2023-06-24] MEDS: FARXIGA PO SCH (08:58)
[2023-06-24] MEDS: TOPROL XL PO SCH (08:59)
[2023-06-24] MEDS: LASIX IVP SCH (08:59)
[2023-06-24] MEDS ORDERED: SYNTHROID 25 mcg TAB PO SCH (09:00)
[2023-06-24] MEDS ORDERED: IMDUR PO SCH (09:00)
[2023-06-24] MEDS ORDERED: FOLIC ACID TAB 1 MG PO SCH (09:00)
[2023-06-24] MEDS ORDERED: LIPITOR TAB 40 MG PO SCH (09:00)
[2023-06-24] MEDS ORDERED: PLAVIX PO SCH (09:00)
[2023-06-24] MEDS ORDERED: K-DUR TAB 20 MEQ PO SCH ×2 (09:00)
[2023-06-24] MEDS ORDERED: ISOSORBIDE MONONITRATE ER 24-HR PO SCH (09:00)
[2023-06-24] MEDS ORDERED: CORDARONE TAB 200 MG PO SCH (09:00)
[2023-06-24] MEDS ORDERED: MAG-OX TAB PO SCH (09:00)
== END 2023-06-24 10:38 | disposition home or self-care (01) ==
LOC: ER 06:41 → INTOOBSV 09:01 → MED/SURG 09:01
PROVIDERS: ADMIT Obstetrics & Gynecology Obstetrics; ATTEND Internal Medicine
DX: I50.9 Heart failure, unspecified; I48.91 Unspecified atrial fibrillation; R06.02 Shortness of breath; E03.8 Other specified hypothyroidism; R09.02 Hypoxemia; I11.0 Hypertensive heart disease with heart failure; I16.0 Hypertensive urgency; E83.42 Hypomagnesemia; K21.9 Gastro-esophageal reflux disease without esophagitis; Z86.73 Personal history of transient ischemic attack (TIA), and cerebral infarction without residual deficits; J90 Pleural effusion, not elsewhere classified; R60.0 Localized edema; I25.10 Atherosclerotic heart disease of native coronary artery without angina pectoris

== ENCOUNTER 2023-07-14 06:15 | Observation (INO) ==
[2023-07-14] MEDS ORDERED: ASPIRIN ONE (06:40)
--- NOTE | 2023-07-14 06:40 | EKG ---
Test Reason : shortness of breath Blood Pressure : */* mmHG Vent. Rate : 70 BPM Atrial Rate : 70 BPM P-R Int : 152 ms QRS Dur : 150 ms QT Int : 462 ms P-R-T Axes : 52 -22 140 degrees QTc Int : 498 ms Atrial-paced rhythm Left bundle branch block Abnormal ECG When compared with ECG of 23-JUN-2023 09:26, No significant change was found Confirmed by Garcia Vallecillo MD ([id number]) on 07/15/2023 7:38:01 AM Referred By: Confirmed By: Garcia Vallecillo MD
[2023-07-14] MEDS: NITROSTAT SL PRN (06:42)
[2023-07-14] MEDS: ASPIRIN PO ONE (06:47)
[2023-07-14 06:51] LABS: BASOPHILS % (AUTO) 0.1 % (0.2-1.0); HEMATOCRIT 30.5 % (36.0-47.0); HEMOGLOBIN 10.2 g/dL (12.0-16.0); LYMPHOCYTES # (AUTO) 0.9 X10^3/uL (1.3-2.9); LYMPHOCYTES % (AUTO) 12.4 % (21.0-51.0); MEAN CORPUSCULAR HEMOGLOBIN 33.3 pg (27.0-34.0); MEAN CORPUSCULAR HGB CONC 33.5 g/dL (33.0-35.0); MEAN CORPUSCULAR VOLUME 99.4 fL (80.0-100.0); MEAN PLATELET VOLUME 8.9 fL (7.4-11.0); MONOCYTES # (AUTO) 0.4 x10^3/uL (0.3-0.8); MONOCYTES % (AUTO) 5.5 % (0.0-13.0); PLATELET COUNT 221 X10^3/uL (150.0-450.0); RED BLOOD COUNT 3.07 X10^6/uL (3.5-5.4); RED CELL DISTRIBUTION WIDTH 19.5 % (11.6-16.5); WHITE BLOOD COUNT 7.3 X10^3/uL (3.6-10.0)
[2023-07-14 06:59] LABS: ALANINE AMINOTRANSFERASE 48 Units/L (12-78); ALBUMIN 3.5 g/dL (3.4-5.0); ALKALINE PHOSPHATASE 73 Units/L (46-116); ASPARTATE AMINO TRANSFERASE 61 Units/L (15-37); BLOOD UREA NITROGEN 40 mg/dL (7-18); CALCIUM 8.5 mg/dL (8.5-10.1); CARBON DIOXIDE 28.2 mmol/L (21-32); CHLORIDE 108 mmol/L (98-107); CREATINE KINASE 77 Units/L (26-192); CREATININE 2.17 mg/dL (0.55-1.02); GLUCOSE 105 mg/dL (65-99); POTASSIUM 3.5 mmol/L (3.5-5.1); SODIUM 147 mmol/L (136-145); TOTAL PROTEIN 6.8 g/dL (6.4-8.2); eGFR NON BLACK RACES 23 (>60)
[2023-07-14 07:00] LABS: INR 1.24 (0.8-1.3)
[2023-07-14] MEDS ORDERED: ZOFRAN INJ 4 MG VIAL ONE (07:08)
[2023-07-14] MEDS ORDERED: MORPHINE SULFATE INJ 2 MG INJ ONE (07:08)
--- NOTE | 2023-07-14 07:08 | DR.SOBA ---
HPI <Joel Gaspar - Last Filed: 07/14/23 08:01> Time Seen Time Seen by Provider: 07/14/23 06:53 Primary Care Physician Primary Care Physician: Solange Chase HPI Comment HPI Comment: According to pt she went to bed last night without any problem .She woke up early this morning feeling short of breath without cough followed by chest pain .pt came to [facility] for evaluation .Chest pain localized .Does not worsen with activity .has no palpitations no orthopnea,PND or swelling around her ankles Complaints Chief Complaint Doctors Comments: shortness of breath Chief Complaint:: Patient in with c/o of shortness of breath. Patient states around 0300 this morning she woke up short of breath and chest pain. Patient states she does not wear oxygen at home. Self Treatment fo Chief Complaint: Patient did not take any medications prior to arrival. COVID-19 Coronavirus risk:travel/contact w/high risk person: No Has patient experienced Coronavirus symptoms: Yes Coronavirus symptoms experienced: Shortness of Breath Reviewed Nurses Notes Reviewed: Yes Source History Provided: Patient Mode of Arrival Mode of Arrival: Ambulatory Timing Onset of Chief Complaint: 07/14/23 Duration Onset: a.m. Duration: Minutes Context Onset:: At Rest PE Risk Factors:: None History of:: CHF Currently on:: Neither Prehospital Care:: Furosemide Modifying Factors Worsens:: Anxiety Improves:: Sitting Up Associated Signs and Symptoms Associated Signs and Symptoms: Chest Pain If Chest Pain Quality: Pressure like Location: Substernal If Cough Cough: None PMH <Joel Francoramu - Last Filed: 07/14/23 08:01> PMH Past Medical History: Yes Past Medical History: Anemia, Anxiety, Arthritis, CHF, Coronary Artery Disease, GERD, Hypertension, Kidney Stones, [place] and Renal Disease Past Medical History Comment: AFIB, hernias Past Surgical History: Yes Surgical History: Angioplasty/Stents, Cholecystectomy, Hysterectomy, Organ Transplant and Lithotripsy Past Surgical History Comment: neck, rotator cuff repair, spinal Family History History of Family Medical Conditions: Yes Family Medical History: Cancer and Heart Failure Social History Do you use any recreational Drugs:: No Travel Risk Coronavirus risk:travel/contact w/high risk person: No Has patient experienced Coronavirus symptoms: Yes Coronavirus symptoms experienced: Shortness of Breath Infectious screening Have you traveled outside the country in the last 6 months?: No Isolation: Standard ROS <Joel Gaspar - Last Filed: 07/14/23 08:01> Review of Systems Constitutional: No Symptoms Reported Eyes: No Symptoms Reported ENTM: No Symptoms Reported Respiratoy: Short of Breath Cardiovascular: Chest Pain Gastrointestinal/Abdominal: No Symptoms Reported Genitourinary: No Symptoms Reported Neurological: No Symptoms Reported Musculoskeletal: No Symptoms Reported Integumentary: No Symptoms Reported Hematologic/Lymphatic: No Symptoms Reported Endocrine: No Symptoms Reported PE <Joel Gaspar - Last Filed: 07/14/23 08:01> Vital Signs Vitals: Vital Signs Temperature 97.8 F Pulse Rate 69 Pulse Rate 69 Pulse Rate 69 Pulse Rate 69 Pulse Rate 69 Pulse Rate 71 Pulse Rate 71 Pulse Rate 69 Pulse Rate 70 Pulse Rate 69 Pulse Rate 70 Pulse Rate 69 Pulse Rate 70 Pulse Rate 69 Pulse Rate 69 Pulse Rate 69 Pulse Rate 71 Pulse Rate 69 Pulse Rate 71 Pulse Rate 69 Pulse Rate 71 Pulse Rate 71 Pulse Rate 74 Respiratory Rate 29 Respiratory Rate 19 Respiratory Rate 25 Respiratory Rate 26 Respiratory Rate 28 Respiratory Rate 35 Respiratory Rate 42 Respiratory Rate 32 Respiratory Rate 31 Respiratory Rate 38 Respiratory Rate 29 Respiratory Rate 36 Respiratory Rate 36 Respiratory Rate 24 Respiratory Rate 37 Respiratory Rate 41 Respiratory Rate 44 Respiratory Rate 32 Respiratory Rate 35 Respiratory Rate 37 Respiratory Rate 32 Respiratory Rate 33 Respiratory Rate 36 Respiratory Rate 35 Respiratory Rate 33 Respiratory Rate 41 Respiratory Rate 34 Respiratory Rate 25 Respiratory Rate 31 Blood Pressure 194/108 Blood Pressure 196/106 Blood Pressure 196/106 Blood Pressure 194/108 Blood Pressure 203/108 Blood Pressure 197/100 Blood Pressure 197/100 Blood Pressure 197/100 Blood Pressure 201/106 Blood Pressure 201/106 Blood Pressure 201/106 Blood Pressure 201/109 Blood Pressure 201/109 Blood Pressure 201/109 Blood Pressure 197/110 Blood Pressure 196/106 Blood Pressure 198/109 Blood Pressure 197/108 Blood Pressure 194/100 Blood Pressure 200/105 Blood Pressure 188/94 Blood Pressure 199/108 Blood Pressure 205/111 Blood Pressure 215/109 Blood Pressure 222/112 Blood Pressure 229/111 Blood Pressure 231/100 O2 Sat by Pulse Oximetry 96 O2 Sat by Pulse Oximetry 96 O2 Sat by Pulse Oximetry 96 O2 Sat by Pulse Oximetry 92 O2 Sat by Pulse Oximetry 93 O2 Sat by Pulse Oximetry 94 O2 Sat by Pulse Oximetry 93 O2 Sat by Pulse Oximetry 93 O2 Sat by Pulse Oximetry 96 O2 Sat by Pulse Oximetry 96 O2 Sat by Pulse Oximetry 96 O2 Sat by Pulse Oximetry 96 O2 Sat by Pulse Oximetry 95 O2 Sat by Pulse Oximetry 95 O2 Sat by Pulse Oximetry 95 O2 Sat by Pulse Oximetry 95 O2 Sat by Pulse Oximetry 96 O2 Sat by Pulse Oximetry 95 O2 Sat by Pulse Oximetry 96 O2 Sat by Pulse Oximetry 94 O2 Sat by Pulse Oximetry 95 O2 Sat by Pulse Oximetry 95 O2 Sat by Pulse Oximetry 84 General Limitations: No Limitations General Appearance: Alert, In No Apparent Distress and Anxious Head Head Exam: Normal Inspection and Atraumatic Eyes Eye exam: Normal Appearance, PERRL and EOMI ENT ENT Exam: Mucous Membranes Moist Neck Neck Exam: Normal Inspection and Full ROM Chest Chest Inspection: Normal Inspection and Symmetric Chest Wall Rise Respiratory Respiratory Exam: Bilateral: Clear to Auscultation Cardiovascular Cardiovascular Exam: +S1 and +S2 Abdominal Exam Abdominal Exam: Normal Inspection, Normal Bowel Sounds and Soft Extremities Extremities Exam: Normal Inspection Neurologic Neurological Exam: Alert Skin Skin Exam: Normal Color <Ramiro Gronia - [facility] Filed: 07/14/23 09:31> Vital Signs Vitals: Vital Signs Temperature 97.8 F Pulse Rate 69 Pulse Rate 69 Pulse Rate 69 Pulse Rate 69 Pulse Rate 69 Pulse Rate 71 Pulse Rate 71 Pulse Rate 69 Pulse Rate 70 Pulse Rate 69 Pulse Rate 70 Pulse Rate 69 Pulse Rate 70 Pulse Rate 69 Pulse Rate 69 Pulse Rate 69 Pulse Rate 71 Pulse Rate 69 Pulse Rate 71 Pulse Rate 69 Pulse Rate 71 Pulse Rate 71 Pulse Rate 74 Respiratory Rate 29 Respiratory Rate 19 Respiratory Rate 25 Respiratory Rate 26 Respiratory Rate 28 Respiratory Rate 35 Respiratory Rate 42 Respiratory Rate 32 Respiratory Rate 31 Respiratory Rate 38 Respiratory Rate 29 Respiratory Rate 36 Respiratory Rate 36 Respiratory Rate 24 Respiratory Rate 37 Respiratory Rate 41 Respiratory Rate 44 Respiratory Rate 32 Respiratory Rate 35 Respiratory Rate 37 Respiratory Rate 32 Respiratory Rate 33 Respiratory Rate 36 Respiratory Rate 35 Respiratory Rate 33 Respiratory Rate 41 Respiratory Rate 34 Respiratory Rate 25 Respiratory Rate 31 Blood Pressure 194/108 Blood Pressure 196/106 Blood Pressure 196/106 Blood Pressure 194/108 Blood Pressure 203/108 Blood Pressure 197/100 Blood Pressure 197/100 Blood Pressure 197/100 Blood Pressure 201/106 Blood Pressure 201/106 Blood Pressure 201/106 Blood Pressure 201/109 Blood Pressure 201/109 Blood Pressure 201/109 Blood Pressure 197/110 Blood Pressure 196/106 Blood Pressure 198/109 Blood Pressure 197/108 Blood Pressure 194/100 Blood Pressure 200/105 Blood Pressure 188/94 Blood Pressure 199/108 Blood Pressure 205/111 Blood Pressure 215/109 Blood Pressure 222/112 Blood Pressure 229/111 Blood Pressure 231/100 O2 Sat by Pulse Oximetry 96 O2 Sat by Pulse Oximetry 96 O2 Sat by Pulse Oximetry 96 O2 Sat by Pulse Oximetry 92 O2 Sat by Pulse Oximetry 93 O2 Sat by Pulse Oximetry 94 O2 Sat by Pulse Oximetry 93 O2 Sat by Pulse Oximetry 93 O2 Sat by Pulse Oximetry 96 O2 Sat by Pulse Oximetry 96 O2 Sat by Pulse Oximetry 96 O2 Sat by Pulse Oximetry 96 O2 Sat by Pulse Oximetry 95 O2 Sat by Pulse Oximetry 95 O2 Sat by Pulse Oximetry 95 O2 Sat by Pulse Oximetry 95 O2 Sat by Pulse Oximetry 96 O2 Sat by Pulse Oximetry 95 O2 Sat by Pulse Oximetry 96 O2 Sat by Pulse Oximetry 94 O2 Sat by Pulse Oximetry 95 O2 Sat by Pulse Oximetry 95 O2 Sat by Pulse Oximetry 84 MDM <Joel Gaspar - Last Filed: 07/14/23 08:01> Differential Diagnosis Differential Diagnosis: Anxiety, CHF, Mycardial Infarction, Pneumonia, Pulmonary embolism and Other (hypertensive urgency) COURSE <Joel Gaspar - Last Filed: 07/14/23 08:01> Treatment Treatment: labs ,sl nitrate ,morphine ,ekg,cxr <Ramiro Farooq - Last Filed: 07/14/23 09:31> Treatment Treatment: labs ,sl nitrate ,morphine ,ekg,cxr 0920 -patient signed over to me from Dr. Gaspar. Currently doing better on O2, 3 L nasal cannula. Blood pressure down to 190/105, will add hydralazine, 10 mg. BNP elevated to 3,940. Troponin normal. Patient was given IV furosemide, having urinary output. Discussed with Dr. Barrera, accepts admission for Dr. Awad. ROR <Joel Gaspar - Last Filed: 07/14/23 08:01> Labs Reviewed Laboratory Results Reviewed?: Yes 07/14/23 06:39 07/14/23 06:39 Laboratory: WBC 7.3 X10^3/uL (3.6-10.0) 07/14/23 06:39 RBC 3.07 X10^6/uL (3.5-5.4) L 07/14/23 06:39 Hgb 10.2 g/dL (12.0-16.0) L 07/14/23 06:39 Hct 30.5 % (36.0-47.0) L 07/14/23 06:39 MCV 99.4 fL (80.0-100.0) 07/14/23 06:39 MCH 33.3 pg (27.0-34.0) 07/14/23 06:39 MCHC 33.5 g/dL (33.0-35.0) 07/14/23 06:39 RDW 19.5 % (11.6-16.5) H 07/14/23 06:39 Plt Count 221 X10^3/uL (150.0-450.0) 07/14/23 06:39 MPV 8.9 fL (7.4-11.0) 07/14/23 06:39 Neut % (Auto) 82.0 % (42.0-75.0) H 07/14/23 06:39 Lymph % (Auto) 12.4 % (21.0-51.0) L 07/14/23 06:39 [place] % (Auto) 5.5 % (0.0-13.0) 07/14/23 06:39 Eos % (Auto) 0.0 % (0.9-2.9) L 07/14/23 06:39 Baso % (Auto) 0.1 % (0.2-1.0) L 07/14/23 06:39 Neut # (Auto) 6.0 x10^3/uL (2.2-4.8) H 07/14/23 06:39 Lymph # (Auto) 0.9 X10^3/uL (1.3-2.9) L 07/14/23 06:39 [place] # (Auto) 0.4 x10^3/uL (0.3-0.8) 07/14/23 06:39 Eos # (Auto) 0.0 x10^3/uL (0.0-0.2) 07/14/23 06:39 Baso # (Auto) 0.0 X10^3/uL (0.0-0.1) 07/14/23 06:39 Absolute Nucleated RBC 0.2 /100WBC 07/14/23 06:39 PT 15.4 SECONDS (11.8-14.3) 07/14/23 06:39 INR Target Range - 07/14/23 06:39 INR 1.24 (0.8-1.3) 07/14/23 06:39 APTT 30.8 SECONDS (22.9-36.5) 07/14/23 06:39 PTT Comment - 07/14/23 06:39 D-Dimer 0.35 ug/ml (0.0-0.57) 07/14/23 06:39 Sodium 147 mmol/L (136-145) H 07/14/23 06:39 Corrected Sodium TNP 07/14/23 06:39 Potassium 3.5 mmol/L (3.5-5.1) 07/14/23 06:39 Chloride 108 mmol/L (98-107) H 07/14/23 06:39 Carbon Dioxide 28.2 mmol/L (21-32) 07/14/23 06:39 BUN 40 mg/dL (7-18) H 07/14/23 06:39 Creatinine 2.17 mg/dL (0.55-1.02) H 07/14/23 06:39 Est GFR (MDRD) Af Amer 28 (>60) L 07/14/23 06:39 Est GFR (MDRD) Non-Af 23 (>60) L 07/14/23 06:39 Glucose 105 mg/dL (65-99) H 07/14/23 06:39 Calcium 8.5 mg/dL (8.5-10.1) 07/14/23 06:39 Corrected Calcium TNP 07/14/23 06:39 Total Bilirubin 0.40 mg/dL (0.2-1.0) 07/14/23 06:39 AST 61 Units/L (15-37) H 07/14/23 06:39 ALT 48 Units/L (12-78) 07/14/23 06:39 Alkaline Phosphatase 73 Units/L (46-116) 07/14/23 06:39 Creatine Kinase 77 Units/L (26-192) 07/14/23 06:39 Troponin I High Sens 27.8 ng/L (4.0-60.0) 07/14/23 06:39 B-Natriuretic Peptide 3940 pg/mL (0-79) H 07/14/23 06:39 Total Protein 6.8 g/dL (6.4-8.2) 07/14/23 06:39 Albumin 3.5 g/dL (3.4-5.0) 07/14/23 06:39 Globulin 3.3 g/dL (2.5-4.5) 07/14/23 06:39 Albumin/Globulin Ratio 1.1 Ratio (1.1-2.1) 07/14/23 06:39 <Ramiro [place] - Last Filed: 07/14/23 09:31> Labs Reviewed Laboratory: WBC 7.3 X10^3/uL (3.6-10.0) 07/14/23 06:39 RBC 3.07 X10^6/uL (3.5-5.4) L 07/14/23 06:39 Hgb 10.2 g/dL (12.0-16.0) L 07/14/23 06:39 Hct 30.5 % (36.0-47.0) L 07/14/23 06:39 MCV 99.4 fL (80.0-100.0) 07/14/23 06:39 MCH 33.3 pg (27.0-34.0) 07/14/23 06:39 MCHC 33.5 g/dL (33.0-35.0) 07/14/23 06:39 RDW 19.5 % (11.6-16.5) H 07/14/23 06:39 Plt Count 221 X10^3/uL (150.0-450.0) 07/14/23 06:39 MPV 8.9 fL (7.4-11.0) 07/14/23 06:39 Neut % (Auto) 82.0 % (42.0-75.0) H 07/14/23 06:39 Lymph % (Auto) 12.4 % (21.0-51.0) L 07/14/23 06:39 [place] % (Auto) 5.5 % (0.0-13.0) 07/14/23 06:39 Eos % (Auto) 0.0 % (0.9-2.9) L 07/14/23 06:39 Baso % (Auto) 0.1 % (0.2-1.0) L 07/14/23 06:39 Neut # (Auto) 6.0 x10^3/uL (2.2-4.8) H 07/14/23 06:39 Lymph # (Auto) 0.9 X10^3/uL (1.3-2.9) L 07/14/23 06:39 [place] # (Auto) 0.4 x10^3/uL (0.3-0.8) 07/14/23 06:39 Eos # (Auto) 0.0 x10^3/uL (0.0-0.2) 07/14/23 06:39 Baso # (Auto) 0.0 X10^3/uL (0.0-0.1) 07/14/23 06:39 Absolute Nucleated RBC 0.2 /100WBC 07/14/23 06:39 PT 15.4 SECONDS (11.8-14.3) 07/14/23 06:39 INR Target Range - 07/14/23 06:39 INR 1.24 (0.8-1.3) 07/14/23 06:39 APTT 30.8 SECONDS (22.9-36.5) 07/14/23 06:39 PTT Comment - 07/14/23 06:39 D-Dimer 0.35 ug/ml (0.0-0.57) 07/14/23 06:39 Sodium 147 mmol/L (136-145) H 07/14/23 06:39 Corrected Sodium TNP 07/14/23 06:39 Potassium 3.5 mmol/L (3.5-5.1) 07/14/23 06:39 Chloride 108 mmol/L (98-107) H 07/14/23 06:39 Carbon Dioxide 28.2 mmol/L (21-32) 07/14/23 06:39 BUN 40 mg/dL (7-18) H 07/14/23 06:39 Creatinine 2.17 mg/dL (0.55-1.02) H 07/14/23 06:39 Est GFR (MDRD) Af Amer 28 (>60) L 07/14/23 06:39 Est GFR (MDRD) Non-Af 23 (>60) L 07/14/23 06:39 Glucose 105 mg/dL (65-99) H 07/14/23 06:39 Calcium 8.5 mg/dL (8.5-10.1) 07/14/23 06:39 Corrected Calcium TNP 07/14/23 06:39 Total Bilirubin 0.40 mg/dL (0.2-1.0) 07/14/23 06:39 AST 61 Units/L (15-37) H 07/14/23 06:39 ALT 48 Units/L (12-78) 07/14/23 06:39 Alkaline Phosphatase 73 Units/L (46-116) 07/14/23 06:39 Creatine Kinase 77 Units/L (26-192) 07/14/23 06:39 Troponin I High Sens 27.8 ng/L (4.0-60.0) 07/14/23 06:39 B-Natriuretic Peptide 3940 pg/mL (0-79) H 07/14/23 06:39 Total Protein 6.8 g/dL (6.4-8.2) 07/14/23 06:39 Albumin 3.5 g/dL (3.4-5.0) 07/14/23 06:39 Globulin 3.3 g/dL (2.5-4.5) 07/14/23 06:39 Albumin/Globulin Ratio 1.1 Ratio (1.1-2.1) 07/14/23 06:39 Opioid <Joel Gaspar - Last Filed: 07/14/23 08:01> Opioid Risk Tool Age (Gus box if 16-45): No History of Preadolescent Sexual Abuse: No Total: 0 Total Score Risk Category: Low Risk Copyright: Hayden HICKEY predicting aberrant behaviors <Ramiro Farooq - Last Filed: 07/14/23 09:31> Opioid Risk Tool Total: 0 Total Score Risk Category: Low Risk Discharge Plan Diagnosis Discharge Problem: Hypertensive urgency, CHF exacerbation Discharge Plan Patient Disposition: ADMITTED INPATIENT Condition: Stable Prescriptions: No Action atorvastatin 40 mg tablet 40 mg PO QDAY folic acid 1 mg tablet 1 mg PO QDAY amiodarone 200 mg tablet 200 mg PO QDAY isosorbide mononitrate 30 mg tablet extended release 24 hr 30 mg PO QAM clopidogrel 75 mg tablet 75 mg PO QDAY tramadol 50 mg tablet 50 mg PO BID PRN levothyroxine 25 mcg tablet 25 mcg PO QDAY isosorbide mononitrate 60 mg tablet extended release 24 hr 60 mg PO QDAY Entresto 49-51 mg Tablet 1 tab PO BID Qty: 60 1RF Rx Instructions: DIET TOLERATED. ACTIVITY TOLERATED. dapagliflozin propanediol [Farxiga] 10 mg Tablet 10 mg PO QDAY Qty: 30 3RF Rx Instructions: TAKE ONE TABLET DAILY furosemide 40 mg tablet 40 mg PO BID Qty: 60 3RF Rx Instructions: TAKE ONE TABLET EVERY MORNING. TAKE AN ADDITIONAL TABLET AT NIGHT ONLY NEEDED FOR INCREASED SWELLING/WEIGHT GAIN. nitroglycerin 0.4 mg Tablet, Sublingual 0.4 mg sublingual Q5M PRN omeprazole 20 mg capsule,delayed release(DR/EC) 20 mg PO BID metoprolol succinate 25 mg tablet extended release 24 hr 100 mg PO BID Eliquis 5 mg tablet 2.5 mg PO BID Health Concerns: Post Hospitalization: new medications and changes needed to prevent readmission or further decline. Pt educated and given instructions on all concerns. Plan of Treatment: Continue with present treatment and follow up plan. Pt is to keep follow up appointment as instructed and take medications as ordered. Orders to Discharge Patient Discharge Orders: Transfer (Routine); Ordered 07/14/23 Ordered By: Ramiro Farooq Follow ups/Referrals Follow ups/Referrals: Acosta Awad [Primary Care Provider] - 3 days
[2023-07-14] MEDS: MORPHINE SULFATE INJ 2 MG INJ IVP ONE (07:14)
[2023-07-14] MEDS: ZOFRAN INJ 4 MG VIAL IVP ONE (07:15)
--- NOTE | 2023-07-14 07:18 | RAD ---
EXAM:AP chestHISTORY:Short of breathCOMPARISON:06/24/2023FINDINGS: pacemaker position. Pulmonary vascular congestion is present; position of patient is not designated on the image. There is no definite lobar consolidation, pneumothorax or pleural fluid.IMPRESSION:Slight interval increase in heart size and vascular congestion concerning for developing CHF.THIS IS AN ELECTRONICALLY VERIFIED FINAL REPORT07/14/2023 7:14 AM - Electronically signed by Eloy Love MD
[2023-07-14] MEDS ORDERED: LASIX IVP ONE (07:30)
[2023-07-14] MEDS: LASIX IVP ONE (07:35)
[2023-07-14] MEDS: IMDUR PO ONE (08:00)
[2023-07-14] MEDS: APRESOLINE INJ 20 MG VIAL IVP ONE (09:19)
[2023-07-14] MEDS: APRESOLINE INJ 20 MG VIAL ONE (09:25)
[2023-07-14 10:33] VITALS: BMI 21.8
[2023-07-14] MEDS ORDERED: NITROSTAT SL PRN (11:15)
[2023-07-14] MEDS ORDERED: CONSULT PHARMACY - POTASSIUM & MAGNESIUM XX SCH (11:15)
--- NOTE | 2023-07-14 11:56 | DR.H&P ---
H&P History & Physical for Day of: H&P Date: 07/14/23 Chief Complaint Chief Complaint: shortness of breath Allergies Allergies Allergy/AdvReac Type Severity Reaction Status Date / Time lorazepam [From Ativan] Allergy Unknown Verified 06/10/23 03:16 pantoprazole Allergy Unknown Verified 06/10/23 03:16 promethazine [From Phenergan] Allergy Unknown Verified 06/10/23 03:16 Sulfa (Sulfonamide Allergy Unknown Verified 06/10/23 03:16 Antibiotics) [SULFA] labetalol Allergy Verified 06/10/23 03:16 History of Present Illness History of Present Illness: Ms Kapadia is a 78y/o female with extensive cardiac hx including CHF, CAD, atrial fibrillation, HTN and HLD presented with worsening SOB. She states she woke up feeling sob today. She was recently admitted 3 weeks ago for similar symptoms. She states she has been taking all her medications. In the ER, she was noted to have elevated BP 231/100. She received multiple IV medications to bring down her BP. She was also noted to have elevated BNP and worsening renal function. She was admitted for further management. She is currently on 2L NC and feels better. Her BP is 171/81. Labs/imaging reviewed - Trop (-) BNP 3940 BUN/Cr 40/2.17 Hgb 10.2 - CXR: consistent with CHF Plan: Admit to med-surg with tele. Monitor daily weight, UOP. Continue IV lasix. Check AIT respiratory and COVID panel. Resume home medications. Monitor BP. Wean O2 as tolerated. Monitor AM labs/imaging. Time spent for clinical assessment, reviewing labs/imaging, physical exam, decision making and documentation greater than 45 mins. Past Medical History Past Medical History: Anemia, Anxiety, Arthritis, CHF, Coronary Artery Disease, GERD, Hypertension, Kidney Stones, DC and Renal Disease Past Surgical History Surgical History: Cholecystectomy and Hysterectomy Family History Family Medical History: Cancer and Hypertension Social History Does patient currently use any type of tobacco product: No Have you used tobacco products in the last 12 months: No Type of Tobacco Use: None Does any household member use tobacco: No Alcohol Use: None Drug Use: None Medications Home Medications: Home Medications Medication Instructions Recorded Confirmed Type nitroglycerin 0.4 mg sublingual 0.4 mg sublingual Q5M PRN 12/25/22 07/14/23 History tablet atorvastatin 40 mg tablet 40 mg PO QDAY 04/07/23 07/14/23 History folic acid 1 mg tablet 1 mg PO QDAY 04/07/23 07/14/23 History apixaban 5 mg tablet (Eliquis) 2.5 mg PO BID 06/10/23 07/14/23 History metoprolol succinate 25 mg 100 mg PO BID 06/10/23 07/14/23 History tablet,extended release 24 hr omeprazole 20 mg capsule,delayed 20 mg PO BID 06/10/23 07/14/23 History release amiodarone 200 mg tablet 200 mg PO QDAY 06/23/23 07/14/23 History clopidogrel 75 mg tablet 75 mg PO QDAY 06/23/23 07/14/23 History isosorbide mononitrate 30 mg 30 mg PO QAM 06/23/23 07/14/23 History tablet,extended release 24 hr isosorbide mononitrate 60 mg 60 mg PO QDAY 06/23/23 07/14/23 History tablet,extended release 24 hr levothyroxine 25 mcg tablet 25 mcg PO QDAY 06/23/23 07/14/23 History tramadol 50 mg tablet 50 mg PO BID PRN 06/23/23 07/14/23 History Labs 07/14/23 06:39 07/14/23 06:39 Labs: Laboratory WBC 7.3 X10^3/uL (3.6-10.0) 07/14/23 06:39 RBC 3.07 X10^6/uL (3.5-5.4) L 07/14/23 06:39 Hgb 10.2 g/dL (12.0-16.0) L 07/14/23 06:39 Hct 30.5 % (36.0-47.0) L 07/14/23 06:39 MCV 99.4 fL (80.0-100.0) 07/14/23 06:39 MCH 33.3 pg (27.0-34.0) 07/14/23 06:39 MCHC 33.5 g/dL (33.0-35.0) 07/14/23 06:39 RDW 19.5 % (11.6-16.5) H 07/14/23 06:39 Plt Count 221 X10^3/uL (150.0-450.0) 07/14/23 06:39 MPV 8.9 fL (7.4-11.0) 07/14/23 06:39 Neut % (Auto) 82.0 % (42.0-75.0) H 07/14/23 06:39 Lymph % (Auto) 12.4 % (21.0-51.0) L 07/14/23 06:39 [place] % (Auto) 5.5 % (0.0-13.0) 07/14/23 06:39 Eos % (Auto) 0.0 % (0.9-2.9) L 07/14/23 06:39 Baso % (Auto) 0.1 % (0.2-1.0) L 07/14/23 06:39 Neut # (Auto) 6.0 x10^3/uL (2.2-4.8) H 07/14/23 06:39 Lymph # (Auto) 0.9 X10^3/uL (1.3-2.9) L 07/14/23 06:39 [place] # (Auto) 0.4 x10^3/uL (0.3-0.8) 07/14/23 06:39 Eos # (Auto) 0.0 x10^3/uL (0.0-0.2) 07/14/23 06:39 Baso # (Auto) 0.0 X10^3/uL (0.0-0.1) 07/14/23 06:39 Absolute Nucleated RBC 0.2 /100WBC 07/14/23 06:39 PT 15.4 SECONDS (11.8-14.3) 07/14/23 06:39 INR Target Range - 07/14/23 06:39 INR 1.24 (0.8-1.3) 07/14/23 06:39 APTT 30.8 SECONDS (22.9-36.5) 07/14/23 06:39 PTT Comment - 07/14/23 06:39 D-Dimer 0.35 ug/ml (0.0-0.57) 07/14/23 06:39 Sodium 147 mmol/L (136-145) H 07/14/23 06:39 Corrected Sodium TNP 07/14/23 06:39 Potassium 3.5 mmol/L (3.5-5.1) 07/14/23 06:39 Chloride 108 mmol/L (98-107) H 07/14/23 06:39 Carbon Dioxide 28.2 mmol/L (21-32) 07/14/23 06:39 BUN 40 mg/dL (7-18) H 07/14/23 06:39 Creatinine 2.17 mg/dL (0.55-1.02) H 07/14/23 06:39 Est GFR (MDRD) Af Amer 28 (>60) L 07/14/23 06:39 Est GFR (MDRD) Non-Af 23 (>60) L 07/14/23 06:39 Glucose 105 mg/dL (65-99) H 07/14/23 06:39 Calcium 8.5 mg/dL (8.5-10.1) 07/14/23 06:39 Corrected Calcium TNP 07/14/23 06:39 Total Bilirubin 0.40 mg/dL (0.2-1.0) 07/14/23 06:39 AST 61 Units/L (15-37) H 07/14/23 06:39 ALT 48 Units/L (12-78) 07/14/23 06:39 Alkaline Phosphatase 73 Units/L (46-116) 07/14/23 06:39 Creatine Kinase 77 Units/L (26-192) 07/14/23 06:39 Troponin I High Sens 27.8 ng/L (4.0-60.0) 07/14/23 06:39 B-Natriuretic Peptide 3940 pg/mL (0-79) H 07/14/23 06:39 Total Protein 6.8 g/dL (6.4-8.2) 07/14/23 06:39 Albumin 3.5 g/dL (3.4-5.0) 07/14/23 06:39 Globulin 3.3 g/dL (2.5-4.5) 07/14/23 06:39 Albumin/Globulin Ratio 1.1 Ratio (1.1-2.1) 07/14/23 06:39 Review of Systems Constitutional: No Symptoms Reported Eyes: No Symptoms Reported ENT: No Symptoms Reported Respiratory: Shortness of Breath Cardiovascular: Orthopnea and Edema Gastrointestinal: No Symptoms Reported Genitourinary: No Symptoms Reported Musculoskeletal: No Symptoms Reported Skin: No Symptoms Reported Neurological: No Symptoms Reported Physical Exam Vital Signs: Vital Signs Temperature 97.8 F Pulse Rate 70 Pulse Rate 70 Pulse Rate 69 Pulse Rate 69 Pulse Rate 69 Pulse Rate 69 Pulse Rate 69 Pulse Rate 71 Pulse Rate 71 Pulse Rate 69 Pulse Rate 70 Pulse Rate 69 Pulse Rate 70 Pulse Rate 69 Pulse Rate 70 Pulse Rate 69 Pulse Rate 69 Pulse Rate 69 Pulse Rate 71 Pulse Rate 69 Pulse Rate 71 Pulse Rate 69 Pulse Rate 71 Pulse Rate 71 Pulse Rate 74 Respiratory Rate 69 Respiratory Rate 24 Respiratory Rate 31 Respiratory Rate 29 Respiratory Rate 19 Respiratory Rate 25 Respiratory Rate 26 Respiratory Rate 28 Respiratory Rate 35 Respiratory Rate 42 Respiratory Rate 32 Respiratory Rate 31 Respiratory Rate 38 Respiratory Rate 29 Respiratory Rate 36 Respiratory Rate 36 Respiratory Rate 24 Respiratory Rate 37 Respiratory Rate 41 Respiratory Rate 44 Respiratory Rate 32 Respiratory Rate 35 Respiratory Rate 37 Respiratory Rate 32 Respiratory Rate 33 Respiratory Rate 36 Respiratory Rate 35 Respiratory Rate 33 Respiratory Rate 41 Respiratory Rate 34 Respiratory Rate 25 Respiratory Rate 31 Blood Pressure 171/81 Blood Pressure 176/91 Blood Pressure 194/108 Blood Pressure 196/106 Blood Pressure 196/106 Blood Pressure 194/108 Blood Pressure 203/108 Blood Pressure 197/100 Blood Pressure 197/100 Blood Pressure 197/100 Blood Pressure 201/106 Blood Pressure 201/106 Blood Pressure 201/106 Blood Pressure 201/109 Blood Pressure 201/109 Blood Pressure 201/109 Blood Pressure 197/110 Blood Pressure 196/106 Blood Pressure 198/109 Blood Pressure 197/108 Blood Pressure 194/100 Blood Pressure 200/105 Blood Pressure 188/94 Blood Pressure 199/108 Blood Pressure 205/111 Blood Pressure 215/109 Blood Pressure 222/112 Blood Pressure 229/111 Blood Pressure 231/100 O2 Sat by Pulse Oximetry 96 O2 Sat by Pulse Oximetry 97 O2 Sat by Pulse Oximetry 97 O2 Sat by Pulse Oximetry 96 O2 Sat by Pulse Oximetry 96 O2 Sat by Pulse Oximetry 96 O2 Sat by Pulse Oximetry 92 O2 Sat by Pulse Oximetry 93 O2 Sat by Pulse Oximetry 94 O2 Sat by Pulse Oximetry 93 O2 Sat by Pulse Oximetry 93 O2 Sat by Pulse Oximetry 96 O2 Sat by Pulse Oximetry 96 O2 Sat by Pulse Oximetry 96 O2 Sat by Pulse Oximetry 96 O2 Sat by Pulse Oximetry 95 O2 Sat by Pulse Oximetry 95 O2 Sat by Pulse Oximetry 95 O2 Sat by Pulse Oximetry 95 O2 Sat by Pulse Oximetry 96 O2 Sat by Pulse Oximetry 95 O2 Sat by Pulse Oximetry 96 O2 Sat by Pulse Oximetry 94 O2 Sat by Pulse Oximetry 95 O2 Sat by Pulse Oximetry 95 O2 Sat by Pulse Oximetry 84 Oriented: Normal Eyes: Normal Ear: Normal Throat: Normal Respiratory: Diminished Throughout Cardiovascular: Normal and Edema Auscultation: Bowel Sounds: Normal Palpation: Normal Tenderness: Normal Skin: Normal Musculoskeletal: Normal Psychiatric: Normal Mood Description: Calm Affect: Normal Speech Pattern: Clear and Appropriate Assessment/Plan (1) CHF exacerbation: Status: Acute (2) Hypertensive urgency: Status: Acute (3) Anemia: Status: Acute (4) Acute on chronic renal failure: Status: Acute (5) CAD (coronary artery disease): Status: Chronic (6) GERD (gastroesophageal reflux disease): Qualifiers: Esophagitis presence: esophagitis presence not specified Qualified Code(s): K21.9 - Gastro-esophageal reflux disease without esophagitis Status: Chronic (7) Pacemaker: Status: Acute (8) Atrial fibrillation: Status: Acute Review H&P Reviewed: Yes Patient was examined?: Yes
[2023-07-14] MEDS: K-DUR TAB 20 MEQ PO SCH (13:42)
[2023-07-14] MEDS: LASIX IVP SCH (16:59)
[2023-07-14] MEDS: ENTRESTO 49/51 MG TABLET PO SCH (20:22)
[2023-07-14] MEDS: TOPROL XL PO SCH (20:22)
[2023-07-14] MEDS: ELIQUIS PO SCH (20:22)
[2023-07-14] MEDS: PriLOSEC PO SCH (20:22)
[2023-07-14] MEDS: ULTRAM PO PRN (23:50)
[2023-07-15 05:16] LABS: BASOPHILS % (AUTO) 0.1 % (0.2-1.0); HEMATOCRIT 32.2 % (36.0-47.0); HEMOGLOBIN 10.8 g/dL (12.0-16.0); LYMPHOCYTES # (AUTO) 0.7 X10^3/uL (1.3-2.9); LYMPHOCYTES % (AUTO) 8.4 % (21.0-51.0); MEAN CORPUSCULAR HEMOGLOBIN 33.1 pg (27.0-34.0); MEAN CORPUSCULAR HGB CONC 33.4 g/dL (33.0-35.0); MEAN CORPUSCULAR VOLUME 99.1 fL (80.0-100.0); MEAN PLATELET VOLUME 9.3 fL (7.4-11.0); MONOCYTES # (AUTO) 0.5 x10^3/uL (0.3-0.8); MONOCYTES % (AUTO) 6.4 % (0.0-13.0); NEUTROPHILS # (AUTO) 7.2 x10^3/uL (2.2-4.8); NEUTROPHILS % (AUTO) 85.1 % (42.0-75.0); PLATELET COUNT 223 X10^3/uL (150.0-450.0); RED BLOOD COUNT 3.25 X10^6/uL (3.5-5.4); RED CELL DISTRIBUTION WIDTH 19.7 % (11.6-16.5); WHITE BLOOD COUNT 8.4 X10^3/uL (3.6-10.0)
[2023-07-15] MEDS: APRESOLINE INJ 20 MG VIAL IVP PRN (05:29)
[2023-07-15 05:34] LABS: ALBUMIN 3.2 g/dL (3.4-5.0); CALCIUM 8.2 mg/dL (8.5-10.1); CARBON DIOXIDE 31.9 mmol/L (21-32); COR CA(FOR HYPOALB) 8.8 mg/dL (8.5-10.1); CREATININE 2.36 mg/dL (0.55-1.02); POTASSIUM 3.6 mmol/L (3.5-5.1); TOTAL PROTEIN 6.5 g/dL (6.4-8.2)
[2023-07-15] MEDS ORDERED: CONSULT PHARMACY - POTASSIUM & MAGNESIUM XX SCH (06:00)
--- NOTE | 2023-07-15 06:19 | RAD ---
EXAM:Portable chestHISTORY:Shortness of breathCOMPARISON:07/14/2019FINDINGS:Ther e is a pacemaker present on the left obscuring a portion of the lateral left upper lobe. Heart size is normal. No congestive heart failure identified on today's examination. No definite acute alveolar infiltrates or pleural effusions identified. Bony thorax is unremarkable with exception of osteopenia.IMPRESSION:No acute infiltratesNo evidence for congestive heart failure on today's examinationTHIS IS AN ELECTRONICALLY VERIFIED FINAL REPORT07/15/2023 6:16 AM - Electronically signed by Isiah Fabian MD
[2023-07-15] MEDS: CORDARONE TAB 200 MG PO SCH (08:27)
[2023-07-15] MEDS: FOLIC ACID TAB 1 MG PO SCH (08:28)
[2023-07-15] MEDS: IMDUR PO SCH (08:28)
[2023-07-15] MEDS: FARXIGA PO SCH (08:28)
[2023-07-15] MEDS: ISOSORBIDE MONONITRATE ER 24-HR PO SCH (08:29)
[2023-07-15] MEDS: LIPITOR TAB 40 MG PO SCH (08:29)
[2023-07-15] MEDS: K-DUR TAB 20 MEQ PO SCH (08:29)
[2023-07-15] MEDS: PLAVIX PO SCH (08:30)
[2023-07-15] MEDS: SYNTHROID 25 mcg TAB PO SCH (08:30)
[2023-07-15] MEDS ORDERED: LASIX IVP PRN (10:53)
--- NOTE | 2023-07-15 13:12 | PCM.PROG ---
Progress Note - Progress Note for Day of Date of Exam: 07/15/23 - Subjective Subjective: IS CURRENTLY INPATIENT STATUS FOR TREATMENT OF CHF EXACERBATION, HYPERTENSIVE URGENCY, ANEMIA, ACUTE ON CHRONIC RENAL FAILURE. HER MEDICAL HX INCLUDES: CHF, CAD, GERD, ATRIAL FIBRILLATION, HYPERLIPIDEMIA, PACEMAKER. SHE HAS BEEN RECEIVING IV LASIX SINCE ADMISSION FOR TX OF CHF. TODAY, SHE IS ALERT AND ORIENTED, SITTING UP IN BED ON MORNING ROUNDS. SHE REPORTS INTERMITTENT SHORTNESS OF BREATH TODAY, BUT DOES REPORT SOME IMPROVEMENT SINCE YESTERDAY. SHE DENIES OTHER COMPLAINTS THIS MORNING. ON EXAMINATION, HEART IS REGULAR IN RATE AND RHYHTM. BILATERAL LUNGS ARE NOTED WITH DIMINISHED LUNG SOUNDS. ABDOMEN IS FLAT, SOFT, AND NON-TENDER WITH NORMAL BOWEL SOUNDS NOTED IN ALL QUADRANTS. GOOD RANGE OF MOTION NOTED TO UPPER AND LOWER EXTREMITIES WITH TRACE LOWER EXTREMITY EDEMA NOTED. HER VITALS THIS MORNING ARE: 98.3-70-20-96%-164/74. SHE HAS BEEN UTILIZING OXYGEN VIA NASAL CANNULA AT 2 LPM. LABS WERE OBTAINED. WBC 8.4, RBC 3.25, HGB 10.8, HCT 32.2, PLT COUNT 223, SODIUM 147, POTASSIUM 3.6, CHLORIDE 107, CARBON DIOXIDE 31.9, BUN 46, CREATININE 2.36, GLUCOSE 111, CALCIUM 8.2, MAGNESIUM 2.0, TOTAL BILI 0.30, AST 19, ALT 34, ALK PHOS 65, BNP 2240, TOTAL PROTEIN 6.5, ALBUMIN 3.2. RESPIRATORY PANEL IS PENDING. A CHEST XRAY WAS REPEATED THIS MORNING AND REVEALED: NO ACUTE INFILTRATES. NO EVIDENCE FOR CONGESTIVE HEART FAILURE ON TODAYS EXAMINATION. SHE IS CURRENTLY RECEIVING LASIX 40MG IV BID, HYDRALAZINE 10MG IV Q4H PRN. HER HOME MEDICATIONS OF ENTRESTO, AMIODARONE, ELIQUIS, LIPITOR, PLAVIX, FOLIC ACID, ISOSORBIDE, LEVOTHYROXINE, METOPROLOL, NITROSTAT PRN, PRILOSEC, AND ULTRAM WERE RESUMED. WE WILL CHANGE HER LASIX TO 40MG BID PRN DUE TO ELEVATED CREATININE. OTHERWISE, WE WILL CONTINUE WITH CURRENT PLAN OF CARE TODAY. WE PLAN TO FOLLOW-UP WITH AM LABS AND CHEST XRAY AND CONTINUE TO MONITOR. TIME SPENT ON CLINICAL ASSESSMENT, REVIEWING LABS AND IMAGING, DECISION MAKING, AND DOCUMENTATION GREATER THAN 45 MINUTES. - Past Medical Family Social History Past Med/Fam/Surg Hx: No changes since H&P Allergies: Allergies lorazepam [From Ativan] Allergy (Unknown, Verified 06/10/23 03:16) Reason: Drug allergy pantoprazole Allergy (Unknown, Verified 06/10/23 03:16) Reason: Drug allergy promethazine [From Phenergan] Allergy (Unknown, Verified 06/10/23 03:16) Reason: Drug allergy Sulfa (Sulfonamide Antibiotics) [SULFA] Allergy (Unknown, Verified 06/10/23 03:16) labetalol Allergy (Verified 06/10/23 03:16) - Review of Systems ROS: No change since H&P - Vital Signs and I&O's Vital Signs: Vital Signs Temperature 98.7 F Temperature 98.3 F Pulse Rate [Brachial] 70 Pulse Rate [Brachial] 70 Respiratory Rate 18 Respiratory Rate 20 Respiratory Rate 20 Respiratory Rate 20 Blood Pressure [Right Arm] 150/69 Blood Pressure [Right Arm] 164/74 O2 Sat by Pulse Oximetry 95 O2 Sat by Pulse Oximetry 96 Intake and Output: Intake & Output 07/13/23 07/14/23 07/15/23 07/16/23 11:59 11:59 11:59 11:59 Intake Total 830 / 830 Output Total 400 / 400 2200 / 2200 Balance -400 / -400 -1370 / -1370 - Physical Exam Oriented: Normal Eyes: Normal Ear: Normal Throat: Normal Respiratory: Generalized, Diminished Cardiovascular: Normal, Edema : Normal Auscultation: Bowel Sounds: Normal Tenderness: Normal Skin: Normal Musculoskeletal: Normal Psychiatric: Normal Mood Description: Calm Affect: Normal Speech Pattern: Clear - Laboratory and Diagnostics Result Diagrams: 07/15/23 04:28 07/15/23 04:28 Labs: Laboratory WBC 8.4 X10^3/uL (3.6-10.0) 07/15/23 04:28 RBC 3.25 X10^6/uL (3.5-5.4) L 07/15/23 04:28 Hgb 10.8 g/dL (12.0-16.0) L 07/15/23 04:28 Hct 32.2 % (36.0-47.0) L 07/15/23 04:28 MCV 99.1 fL (80.0-100.0) 07/15/23 04:28 MCH 33.1 pg (27.0-34.0) 07/15/23 04:28 MCHC 33.4 g/dL (33.0-35.0) 07/15/23 04: RDW 19.7 % (11.6-16.5) H 07/15/23 04:28 Plt Count 223 X10^3/uL (150.0-450.0) 07/15/23 04:28 MPV 9.3 fL (7.4-11.0) 07/15/23 04:28 Neut % (Auto) 85.1 % (42.0-75.0) H 07/15/23 04: Lymph % (Auto) 8.4 % (21.0-51.0) L 07/15/23 04: [place] % (Auto) 6.4 % (0.0-13.0) 07/15/23 04: Eos % (Auto) 0.0 % (0.9-2.9) L 07/15/23 04: Baso % (Auto) 0.1 % (0.2-1.0) L 07/15/23 04:28 Neut # (Auto) 7.2 x10^3/uL (2.2-4.8) H 07/15/23 04:28 Lymph # (Auto) 0.7 X10^3/uL (1.3-2.9) L 07/15/23 04:28 [place] # (Auto) 0.5 x10^3/uL (0.3-0.8) 07/15/23 04:28 Eos # (Auto) 0.0 x10^3/uL (0.0-0.2) 07/15/23 04:28 Baso # (Auto) 0.0 X10^3/uL (0.0-0.1) 07/15/23 04:28 Absolute Nucleated RBC 0.1 /100WBC 07/15/23 04:28 PT 15.4 SECONDS (11.8-14.3) 07/14/23 06:39 INR Target Range - 07/14/23 06:39 INR 1.24 (0.8-1.3) 07/14/23 06:39 APTT 30.8 SECONDS (22.9-36.5) 07/14/23 06:39 PTT Comment - 07/14/23 06:39 D-Dimer 0.35 ug/ml (0.0-0.57) 07/14/23 06:39 Sodium 147 mmol/L (136-145) H 07/15/23 04:28 Corrected Sodium 147 mmol/L (136-145) H 07/15/23 04:28 Potassium 3.6 mmol/L (3.5-5.1) 07/15/23 04:28 Chloride 107 mmol/L (98-107) 07/15/23 04:28 Carbon Dioxide 31.9 mmol/L (21-32) 07/15/23 04:28 BUN 46 mg/dL (7-18) H 07/15/23 04:28 Creatinine 2.36 mg/dL (0.55-1.02) H 07/15/23 04:28 Est GFR (MDRD) Af Amer 26 (>60) L 07/15/23 04:28 Est GFR (MDRD) Non-Af 21 (>60) L 07/15/23 04:28 Glucose 111 mg/dL (65-99) H 07/15/23 04:28 Calcium 8.2 mg/dL (8.5-10.1) L 07/15/23 04:28 Corrected Calcium 8.8 mg/dL (8.5-10.1) 07/15/23 04:28 Magnesium 2.0 mg/dL (2.0-2.9) 07/15/23 04:28 Total Bilirubin 0.30 mg/dL (0.2-1.0) 07/15/23 04:28 AST 19 Units/L (15-37) 07/15/23 04:28 ALT 34 Units/L (12-78) 07/15/23 04:28 Alkaline Phosphatase 65 Units/L (46-116) 07/15/23 04:28 Creatine Kinase 77 Units/L (26-192) 07/14/23 06:39 Troponin I High Sens 27.8 ng/L (4.0-60.0) 07/14/23 06:39 B-Natriuretic Peptide 2240 pg/mL (0-79) H 07/15/23 04:28 Total Protein 6.5 g/dL (6.4-8.2) 07/15/23 04:28 Albumin 3.2 g/dL (3.4-5.0) L 07/15/23 04:28 Globulin 3.3 g/dL (2.5-4.5) 07/15/23 04:28 Albumin/Globulin Ratio 1.0 Ratio (1.1-2.1) L 07/15/23 04:28 SARS-CoV-2 (PCR) Negative (NEGATIVE) 07/14/23 11:54 Influenza Type A (PCR) Negative (NEGATIVE) 07/14/23 11:54 Influenza Type B (PCR) Negative (NEGATIVE) 07/14/23 11:54 RSV (PCR) Negative (NEGATIVE) 07/14/23 11:54 - Plan (1) Hypertensive urgency Status: Acute (2) CHF exacerbation Status: Acute (3) Acute on chronic renal failure Status: Acute Qualifiers: Acute renal failure type: unspecified Chronic kidney disease stage: unspecified stage Qualified Code(s): N17.9 - Acute kidney failure, unspecified; N18.9 - Chronic kidney disease, unspecified (4) Anemia Status: Chronic Qualifiers: Anemia type: unspecified type Qualified Code(s): D64.9 - Anemia, unspecified (5) CAD (coronary artery disease) Status: Chronic Qualifiers: Coronary Disease-Associated Artery/Lesion type: unspecified vessel or lesion type [place] vs. transplanted heart: [place] heart Associated angina: unspecified whether angina present Qualified Code(s): I25.10 - Atherosclerotic heart disease of [place] coronary artery without angina pectoris (6) GERD (gastroesophageal reflux disease) Status: Chronic Qualifiers: Esophagitis presence: esophagitis presence not specified (7) Pacemaker Status: Chronic
--- NOTE | 2023-07-16 06:07 | RAD ---
EXAM:CHEST, 1 VIEWHISTORY:SOB; ANEMIA, ARTHRITIS, CHF, COPD, GERD, HTN, AR, RENAL DISEASE, AFIB SX: ANGIO/STENTS, LANG, HYST, ORGAN TRANSPLANT, SPINALCOMPARISON:07/15/2023FINDINGS:The trachea is midline. The cardiac silhouette is unremarkable. Permanent pacing device. The lungs are clear without focal infiltrate or effusion. The bony thorax is unremarkable.IMPRESSION:No acute cardiopulmonary disease.THIS IS AN ELECTRONICALLY VERIFIED FINAL REPORT07/16/2023 6:04 AM - Electronically signed by Eliud Polanco MD
[2023-07-16 06:18] LABS: BASOPHILS % (AUTO) 0.1 % (0.2-1.0); HEMATOCRIT 31.2 % (36.0-47.0); HEMOGLOBIN 10.2 g/dL (12.0-16.0); LYMPHOCYTES # (AUTO) 0.8 X10^3/uL (1.3-2.9); LYMPHOCYTES % (AUTO) 12.5 % (21.0-51.0); MEAN CORPUSCULAR HEMOGLOBIN 32.6 pg (27.0-34.0); MEAN CORPUSCULAR HGB CONC 32.6 g/dL (33.0-35.0); MEAN PLATELET VOLUME 9.2 fL (7.4-11.0); MONOCYTES # (AUTO) 0.4 x10^3/uL (0.3-0.8); MONOCYTES % (AUTO) 6.4 % (0.0-13.0); NEUTROPHILS # (AUTO) 5.1 x10^3/uL (2.2-4.8); PLATELET COUNT 202 X10^3/uL (150.0-450.0); RED BLOOD COUNT 3.12 X10^6/uL (3.5-5.4); RED CELL DISTRIBUTION WIDTH 19.5 % (11.6-16.5); WHITE BLOOD COUNT 6.3 X10^3/uL (3.6-10.0)
[2023-07-16 06:32] LABS: ALBUMIN 2.9 g/dL (3.4-5.0); CARBON DIOXIDE 28.5 mmol/L (21-32); COR CA(FOR HYPOALB) 8.9 mg/dL (8.5-10.1); CREATININE 2.42 mg/dL (0.55-1.02); POTASSIUM 3.5 mmol/L (3.5-5.1)
[2023-07-16] MEDS ORDERED: CONSULT PHARMACY - POTASSIUM & MAGNESIUM XX SCH (07:00)
[2023-07-16 08:33] VITALS: BP 163/86; PULSE 86; RESP 18; TEMP 97.8; O2SAT 93
[2023-07-16] MEDS: K-DUR TAB 20 MEQ PO SCH (08:35)
== END 2023-07-16 11:07 | disposition home or self-care (01) ==
LOC: ER 06:21 → MED/SURG 06:21
PROVIDERS: ADMIT Internal Medicine; ATTEND Internal Medicine
DX: N18.9 Chronic kidney disease, unspecified; Z20.822 Contact with and (suspected) exposure to COVID-19; I16.0 Hypertensive urgency; I48.91 Unspecified atrial fibrillation; R06.02 Shortness of breath; R07.89 Other chest pain; E87.0 Hyperosmolality and hypernatremia; K21.9 Gastro-esophageal reflux disease without esophagitis; Z79.01 Long term (current) use of anticoagulants; I11.0 Hypertensive heart disease with heart failure; Z95.0 Presence of cardiac pacemaker; I50.9 Heart failure, unspecified; D64.89 Other specified anemias; I25.10 Atherosclerotic heart disease of native coronary artery without angina pectoris; N17.8 Other acute kidney failure

== ENCOUNTER 2023-12-01 00:01 | Observation (INO) ==
[2023-12-01 00:12] VITALS: BMI 22.1
--- NOTE | 2023-12-01 00:22 | EKG ---
Test Reason : SOB Blood Pressure : */* mmHG Vent. Rate : 71 BPM Atrial Rate : 71 BPM P-R Int : 166 ms QRS Dur : 164 ms QT Int : 492 ms P-R-T Axes : 88 -13 152 degrees QTc Int : 534 ms Atrial-paced rhythm Left bundle branch block Abnormal ECG When compared with ECG of 12-SEP-2023 07:53, No significant change was found Confirmed by Garcia Vallecillo MD ([id number]) on 12/02/2023 7:41:52 AM Referred By: Confirmed By: Garcia Vallecillo MD
--- NOTE | 2023-12-01 00:28 | DR.SOBA ---
HPI Time Seen Time Seen by Provider: 12/01/23 00:27 Primary Care Physician Primary Care Physician: Complaints Chief Complaint:: pt c/o chest pain and shoertness of breathe that started last night. Self Treatment fo Chief Complaint: nitroglycerin thirty minutes ago Source History Provided: Patient Mode of Arrival Mode of Arrival: Ambulatory Timing Onset of Chief Complaint: 11/30/23 PMH PMH Past Medical History: Yes Past Medical History: Anemia, Anxiety, Arthritis, CHF, Coronary Artery Disease, GERD, Hypertension, Kidney Stones, [place] and Renal Disease Past Surgical History: Yes Surgical History: Cholecystectomy and Hysterectomy Family History History of Family Medical Conditions: Yes Family Medical History: Cancer and Hypertension Social History Does patient currently use any type of tobacco product: No Do you use any recreational Drugs:: No Lives With: Family Lives Where: Home Infectious screening In the last 2 months have you had wt loss of >10#?: NO Have you had fever, night sweats or hemotysis?: No Have you traveled outside the country in the last 6 months?: No Isolation: Standard PE Vital Signs Vitals: Vital Signs Temperature 97.7 F Pulse Rate 69 Pulse Rate 69 Pulse Rate 69 Pulse Rate 69 Pulse Rate 69 Pulse Rate 69 Pulse Rate 69 Pulse Rate 75 Pulse Rate 71 Pulse Rate 69 Pulse Rate 69 Pulse Rate 74 Pulse Rate 74 Pulse Rate 69 Pulse Rate 69 Pulse Rate 69 Pulse Rate 69 Pulse Rate 69 Pulse Rate 69 Pulse Rate 77 Pulse Rate 80 Pulse Rate 87 Pulse Rate 71 Pulse Rate 69 Pulse Rate 70 Pulse Rate 70 Pulse Rate 69 Pulse Rate 69 Pulse Rate 69 Pulse Rate 69 Pulse Rate 69 Pulse Rate 69 Pulse Rate 69 Pulse Rate 69 Pulse Rate 69 Pulse Rate 69 Pulse Rate 69 Pulse Rate 69 Pulse Rate 72 Pulse Rate 74 Pulse Rate 74 Pulse Rate 74 Pulse Rate 74 Pulse Rate 80 Pulse Rate 81 Pulse Rate 83 Pulse Rate 82 Pulse Rate 78 Pulse Rate 79 Pulse Rate 75 Pulse Rate 75 Pulse Rate 76 Pulse Rate 77 Pulse Rate 71 Pulse Rate 69 Pulse Rate 69 Pulse Rate 70 Pulse Rate 70 Pulse Rate 71 Pulse Rate 69 Pulse Rate 69 Pulse Rate 69 Pulse Rate 71 Respiratory Rate 16 Respiratory Rate 15 Respiratory Rate 17 Respiratory Rate 19 Respiratory Rate 14 Respiratory Rate 17 Respiratory Rate 16 Respiratory Rate 26 Respiratory Rate 21 Respiratory Rate 19 Respiratory Rate 18 Respiratory Rate 28 Respiratory Rate 33 Respiratory Rate 25 Respiratory Rate 24 Respiratory Rate 25 Respiratory Rate 28 Respiratory Rate 29 Respiratory Rate 17 Respiratory Rate 23 Respiratory Rate 27 Respiratory Rate 29 Respiratory Rate 33 Respiratory Rate 26 Respiratory Rate 27 Respiratory Rate 25 Respiratory Rate 21 Respiratory Rate 25 Respiratory Rate 16 Respiratory Rate 24 Respiratory Rate 18 Respiratory Rate 19 Respiratory Rate 21 Respiratory Rate 21 Respiratory Rate 20 Respiratory Rate 21 Respiratory Rate 19 Respiratory Rate 21 Respiratory Rate 26 Respiratory Rate 34 Respiratory Rate 54 Respiratory Rate 52 Respiratory Rate 38 Respiratory Rate 40 Respiratory Rate 33 Respiratory Rate 46 Respiratory Rate 33 Respiratory Rate 33 Respiratory Rate 35 Respiratory Rate 33 Respiratory Rate 38 Respiratory Rate 34 Respiratory Rate 19 Respiratory Rate 21 Respiratory Rate 30 Respiratory Rate 25 Respiratory Rate 24 Respiratory Rate 43 Respiratory Rate 30 Respiratory Rate 21 Respiratory Rate 35 Respiratory Rate 28 Respiratory Rate 24 Blood Pressure 195/89 Blood Pressure 180/83 Blood Pressure 184/85 Blood Pressure 187/86 Blood Pressure 194/86 Blood Pressure 180/78 Blood Pressure 193/81 Blood Pressure 181/81 Blood Pressure 188/80 Blood Pressure 201/88 Blood Pressure 165/82 Blood Pressure 186/80 Blood Pressure 209/91 Blood Pressure 193/87 Blood Pressure 181/84 Blood Pressure 188/81 Blood Pressure 183/82 Blood Pressure 189/84 Blood Pressure 196/81 Blood Pressure 167/77 Blood Pressure 189/83 Blood Pressure 173/76 Blood Pressure 160/72 Blood Pressure 167/73 Blood Pressure 187/78 Blood Pressure 176/75 Blood Pressure 187/81 Blood Pressure 180/77 Blood Pressure 187/80 Blood Pressure 180/77 Blood Pressure 189/79 Blood Pressure 168/73 Blood Pressure 188/82 Blood Pressure 199/88 Blood Pressure 202/140 Blood Pressure 209/97 Blood Pressure 214/106 Blood Pressure 209/109 Blood Pressure 213/108 Blood Pressure 210/106 Blood Pressure 200/95 Blood Pressure 192/88 Blood Pressure 199/96 Blood Pressure 197/95 Blood Pressure 199/96 Blood Pressure 200/82 Blood Pressure 201/92 Blood Pressure 195/89 O2 Sat by Pulse Oximetry 99 O2 Sat by Pulse Oximetry 99 O2 Sat by Pulse Oximetry 99 O2 Sat by Pulse Oximetry 99 O2 Sat by Pulse Oximetry 98 O2 Sat by Pulse Oximetry 98 O2 Sat by Pulse Oximetry 97 O2 Sat by Pulse Oximetry 97 O2 Sat by Pulse Oximetry 98 O2 Sat by Pulse Oximetry 97 O2 Sat by Pulse Oximetry 97 O2 Sat by Pulse Oximetry 96 O2 Sat by Pulse Oximetry 97 O2 Sat by Pulse Oximetry 97 O2 Sat by Pulse Oximetry 97 O2 Sat by Pulse Oximetry 97 O2 Sat by Pulse Oximetry 96 O2 Sat by Pulse Oximetry 97 O2 Sat by Pulse Oximetry 96 O2 Sat by Pulse Oximetry 94 O2 Sat by Pulse Oximetry 94 O2 Sat by Pulse Oximetry 96 O2 Sat by Pulse Oximetry 97 O2 Sat by Pulse Oximetry 97 O2 Sat by Pulse Oximetry 96 O2 Sat by Pulse Oximetry 96 O2 Sat by Pulse Oximetry 96 O2 Sat by Pulse Oximetry 96 O2 Sat by Pulse Oximetry 96 O2 Sat by Pulse Oximetry 96 O2 Sat by Pulse Oximetry 96 O2 Sat by Pulse Oximetry 96 O2 Sat by Pulse Oximetry 96 O2 Sat by Pulse Oximetry 95 O2 Sat by Pulse Oximetry 95 O2 Sat by Pulse Oximetry 96 O2 Sat by Pulse Oximetry 95 O2 Sat by Pulse Oximetry 96 O2 Sat by Pulse Oximetry 95 O2 Sat by Pulse Oximetry 93 O2 Sat by Pulse Oximetry 93 O2 Sat by Pulse Oximetry 91 O2 Sat by Pulse Oximetry 90 O2 Sat by Pulse Oximetry 90 O2 Sat by Pulse Oximetry 89 O2 Sat by Pulse Oximetry 91 O2 Sat by Pulse Oximetry 92 O2 Sat by Pulse Oximetry 93 O2 Sat by Pulse Oximetry 92 O2 Sat by Pulse Oximetry 93 O2 Sat by Pulse Oximetry 94 O2 Sat by Pulse Oximetry 89 O2 Sat by Pulse Oximetry 88 O2 Sat by Pulse Oximetry 93 O2 Sat by Pulse Oximetry 95 O2 Sat by Pulse Oximetry 95 O2 Sat by Pulse Oximetry 95 O2 Sat by Pulse Oximetry 95 O2 Sat by Pulse Oximetry 85 O2 Sat by Pulse Oximetry 88 O2 Sat by Pulse Oximetry 88 O2 Sat by Pulse Oximetry 90 O2 Sat by Pulse Oximetry 87 ROR Labs Reviewed 12/01/23 01:16 12/01/23 01:16 Laboratory: WBC 7.4 X10^3/uL (3.6-10.0) 12/01/23 01:16 RBC 2.83 X10^6/uL (3.5-5.4) L 12/01/23 01:16 Hgb 9.7 g/dL (12.0-16.0) L 12/01/23 01:16 Hct 29.2 % (36.0-47.0) L 12/01/23 01:16 MCV 103.3 fL (80.0-100.0) H 12/01/23 01:16 MCH 34.3 pg (27.0-34.0) H 12/01/23 01:16 MCHC 33.2 g/dL (33.0-35.0) 12/01/23 01:16 RDW 14.2 % (11.6-16.5) 12/01/23 01:16 Plt Count 203 X10^3/uL (150.0-450.0) 12/01/23 01:16 MPV 9.4 fL (7.4-11.0) 12/01/23 01:16 Neut % (Auto) 73.5 % (42.0-75.0) 12/01/23 01:16 Lymph % (Auto) 17.9 % (21.0-51.0) L 12/01/23 01:16 [place] % (Auto) 5.0 % (0.0-13.0) 12/01/23 01:16 Eos % (Auto) 2.0 % (0.9-2.9) 12/01/23 01:16 Baso % (Auto) 1.6 % (0.2-1.0) H 12/01/23 01:16 Neut # (Auto) 5.5 x10^3/uL (2.2-4.8) H 12/01/23 01:16 Lymph # (Auto) 1.3 X10^3/uL (1.3-2.9) 12/01/23 01:16 [place] # (Auto) 0.4 x10^3/uL (0.3-0.8) 12/01/23 01:16 Eos # (Auto) 0.2 x10^3/uL (0.0-0.2) 12/01/23 01:16 Baso # (Auto) 0.1 X10^3/uL (0.0-0.1) 12/01/23 01:16 Absolute Nucleated RBC 0.0 /100WBC 12/01/23 01:16 Sample Site Lrad 12/01/23 01:10 ABG pH 7.480 (7.35-7.45) H 12/01/23 01:10 ABG pCO2 41.0 mmHg (35.0-45.0) 12/01/23 01:10 ABG pO2 52.0 mmHg (80.0-100.0) L 12/01/23 01:10 ABG HCO3 30.5 mmol/L (22-26) H* 12/01/23 01:10 ABG O2 Saturation 89.0 % (90-100) L 12/01/23 01:10 ABG Base Excess 6.4 mmol/L (-2.0-2.0) H 12/01/23 01:10 Hung Test Pos 12/01/23 01:10 A-a Gradient 46.0 mmHg 12/01/23 01:10 FiO2 21.0 12/01/23 01:10 Blood Gas Comments Pt on room air 12/01/23 01:10 Sodium 143 mmol/L (136-145) 12/01/23 01:16 Corrected Sodium TNP 12/01/23 01:16 Potassium 3.2 mmol/L (3.5-5.1) L 12/01/23 01:16 Chloride 103 mmol/L (98-107) 12/01/23 01:16 Carbon Dioxide 32.1 mmol/L (21-32) H 12/01/23 01:16 BUN 24 mg/dL (7-18) H 12/01/23 01:16 Creatinine 2.19 mg/dL (0.55-1.02) H 12/01/23 01:16 Est GFR (MDRD) Af Amer 28 (>60) L 12/01/23 01:16 Est GFR (MDRD) Non-Af 23 (>60) L 12/01/23 01:16 Glucose 105 mg/dL (65-99) H 12/01/23 01:16 Calcium 8.3 mg/dL (8.5-10.1) L 12/01/23 01:16 Corrected Calcium 9.0 mg/dL (8.5-10.1) 12/01/23 01:16 Total Bilirubin 0.30 mg/dL (0.2-1.0) 12/01/23 01:16 AST 70 Units/L (15-37) H 12/01/23 01:16 ALT 55 Units/L (12-78) 12/01/23 01:16 Alkaline Phosphatase 83 Units/L (46-116) 12/01/23 01:16 Creatine Kinase 161 Units/L (26-192) 12/01/23 03:17 Troponin I High Sens 28.9 ng/L (4.0-60.0) 12/01/23 05:35 B-Natriuretic Peptide 2350 pg/mL (0-79) H 12/01/23 01:16 Total Protein 6.6 g/dL (6.4-8.2) 12/01/23 01:16 Albumin 3.1 g/dL (3.4-5.0) L 12/01/23 01:16 Globulin 3.5 g/dL (2.5-4.5) 12/01/23 01:16 Albumin/Globulin Ratio 0.9 Ratio (1.1-2.1) L 12/01/23 01:16 Opioid Opioid Risk Tool Age (Gus box if 16-45): No History of Preadolescent Sexual Abuse: No Total: 0 Total Score Risk Category: Low Risk Copyright: [facility] predicting aberrant behaviors Discharge Plan Discharge Plan Patient Disposition: HOME, SELF-CARE Condition: Stable Prescriptions: No Action atorvastatin 40 mg tablet 40 mg PO QDAY folic acid 1 mg tablet 1 mg PO QDAY clopidogrel 75 mg tablet 75 mg PO QDAY tramadol 50 mg tablet 50 mg PO BID PRN levothyroxine 25 mcg tablet 25 mcg PO QDAY Entresto 49-51 mg Tablet 1 tab PO BID Qty: 60 1RF Rx Instructions: DIET TOLERATED. ACTIVITY TOLERATED. dapagliflozin propanediol [Farxiga] 10 mg Tablet 10 mg PO QDAY Qty: 30 3RF Rx Instructions: TAKE ONE TABLET DAILY nitroglycerin 0.3 mg tablet, sublingual 0.3 mg sublingual PRN prednisone 5 mg tablet PO isosorbide mononitrate 30 mg tablet extended release 24 hr 30 mg PO QDAY omeprazole 20 mg capsule,delayed release(DR/EC) 20 mg PO BID metoprolol succinate 25 mg tablet extended release 24 hr 100 mg PO BID Eliquis 5 mg tablet 2.5 mg PO BID Health Concerns: Post Hospitalization: new medications and changes needed to prevent readmission or further decline. Pt educated and given instructions on all concerns. Plan of Treatment: Continue with present treatment and follow up plan. Pt is to keep follow up appointment as instructed and take medications as ordered. Orders to Discharge Patient Discharge Orders: Transfer (Routine); Ordered 12/01/23 Ordered By: CB LÓPEZ Follow ups/Referrals Follow ups/Referrals: NFD,None [Primary Care Provider] - 3 days Instructions Stand Alone Forms: Post Hospital Follow Up Care
[2023-12-01 01:12] LABS: ABG BASE EXCESS 6.4 mmol/L (-2.0-2.0)
[2023-12-01 01:15] LABS: ABG ALLEN TEST POS; ABG HCO3 30.5 mmol/L (22-26)
[2023-12-01 01:43] LABS: BASOPHILS # (AUTO) 0.1 X10^3/uL (0.0-0.1); BASOPHILS % (AUTO) 1.6 % (0.2-1.0); EOSINOPHILS # (AUTO) 0.2 x10^3/uL (0.0-0.2); HEMATOCRIT 29.2 % (36.0-47.0); HEMOGLOBIN 9.7 g/dL (12.0-16.0); LYMPHOCYTES # (AUTO) 1.3 X10^3/uL (1.3-2.9); LYMPHOCYTES % (AUTO) 17.9 % (21.0-51.0); MEAN CORPUSCULAR HEMOGLOBIN 34.3 pg (27.0-34.0); MEAN CORPUSCULAR HGB CONC 33.2 g/dL (33.0-35.0); MEAN CORPUSCULAR VOLUME 103.3 fL (80.0-100.0); MEAN PLATELET VOLUME 9.4 fL (7.4-11.0); MONOCYTES # (AUTO) 0.4 x10^3/uL (0.3-0.8); NEUTROPHILS # (AUTO) 5.5 x10^3/uL (2.2-4.8); NEUTROPHILS % (AUTO) 73.5 % (42.0-75.0); PLATELET COUNT 203 X10^3/uL (150.0-450.0); RED BLOOD COUNT 2.83 X10^6/uL (3.5-5.4); RED CELL DISTRIBUTION WIDTH 14.2 % (11.6-16.5); WHITE BLOOD COUNT 7.4 X10^3/uL (3.6-10.0)
[2023-12-01 01:56] LABS: ALANINE AMINOTRANSFERASE 55 Units/L (12-78); ALBUMIN 3.1 g/dL (3.4-5.0); ALKALINE PHOSPHATASE 83 Units/L (46-116); ASPARTATE AMINO TRANSFERASE 70 Units/L (15-37); BLOOD UREA NITROGEN 24 mg/dL (7-18); CALCIUM 8.3 mg/dL (8.5-10.1); CARBON DIOXIDE 32.1 mmol/L (21-32); CHLORIDE 103 mmol/L (98-107); CREATINE KINASE 149 Units/L (26-192); CREATININE 2.19 mg/dL (0.55-1.02); GLUCOSE 105 mg/dL (65-99); POTASSIUM 3.2 mmol/L (3.5-5.1); SODIUM 143 mmol/L (136-145); TOTAL PROTEIN 6.6 g/dL (6.4-8.2); eGFR NON BLACK RACES 23 (>60)
[2023-12-01] MEDS: MORPHINE SULFATE INJ 2 MG INJ IVP ONE (02:00)
[2023-12-01] MEDS: ZOFRAN INJ 4 MG VIAL IVP ONE (02:00)
[2023-12-01] MEDS: LASIX IVP ONE ×2 (02:25→10:02)
[2023-12-01] MEDS: APRESOLINE INJ 20 MG VIAL IVP ONE (03:05)
--- NOTE | 2023-12-01 03:10 | EKG ---
Test Reason : SOB, CP Blood Pressure : */* mmHG Vent. Rate : 75 BPM Atrial Rate : 75 BPM P-R Int : 176 ms QRS Dur : 168 ms QT Int : 476 ms P-R-T Axes : 72 -62 99 degrees QTc Int : 531 ms Normal sinus rhythm Possible Left atrial enlargement Left axis deviation Left bundle branch block Abnormal ECG When compared with ECG of 01-DEC-2023 00:19, (Unconfirmed) Sinus rhythm has replaced Electronic atrial pacemaker QRS axis shifted left Confirmed by Garcia Vallecillo MD ([id number]) on 12/02/2023 7:41:39 AM Referred By: Confirmed By: Garcia Vallecillo MD
--- NOTE | 2023-12-01 05:32 | EKG ---
Test Reason : chest pain Blood Pressure : */* mmHG Vent. Rate : 71 BPM Atrial Rate : 71 BPM P-R Int : 160 ms QRS Dur : 170 ms QT Int : 498 ms P-R-T Axes : 27 -28 116 degrees QTc Int : 541 ms Atrial-paced rhythm Left bundle branch block Abnormal ECG When compared with ECG of 01-DEC-2023 03:07, (Unconfirmed) Electronic atrial pacemaker has replaced Sinus rhythm Confirmed by Garcia Vallecillo MD ([id number]) on 12/02/2023 7:41:07 AM Referred By: Confirmed By: Garcia Vallecillo MD
--- NOTE | 2023-12-01 08:08 | RAD ---
EXAMINATION:CHEST, 1 VIEWHISTORY:SOB; pt c/o chest pain and shortness of breath that started last night. .COMPARISON STUDY:Chest x-ray 09/12/2023TECHNIQUE:Single frontal view chestFINDINGS:Lungs are expanded. Coarse interstitial infiltrates throughout the right lung and left lower lung field. Mild cardiac silhouette enlargement. Cardiac pacer device left upper chest. Bones are intact. Fusion hardware cervical spine.IMPRESSION:Prominent interstitial markings in both lungs. Cardiac silhouette enlargement.THIS IS AN ELECTRONICALLY VERIFIED FINAL REPORT12/01/2023 8:00 AM - Electronically signed by Paola Burns MD
[2023-12-01] MEDS: MORPHINE SULFATE INJ 2 MG INJ ONE (10:01)
[2023-12-01] MEDS: APRESOLINE INJ 20 MG VIAL ONE (10:02)
[2023-12-01] MEDS: ZOFRAN INJ 4 MG VIAL ONE (10:02)
[2023-12-01] MEDS: LASIX IVP SCH ×2 (10:03→17:28)
[2023-12-01] MEDS: ZOSYN VIAL 3.375 GRAMS 3.375 G in NS 100 ML IV 100 ML IV SCH (11:00)
--- NOTE | 2023-12-01 11:04 | DR.H&P ---
H&P History & Physical for Day of: H&P Date: 12/01/23 Chief Complaint Chief Complaint: shortness of breath History of Present Illness History of Present Illness: Patient is a 78y/o female with extensive cardiac hx including CHF, CAD, atrial fibrillation, HTN and HLD presented with shortness of breath that was progressively worsening over the past few days. She reports taking her medications. Denies any fever, chills. Labs/imaging: WBC 7.4, hemoglobin 9.7, platelets 203, sodium 143, potassium 3.2, creatinine 2.19, glucose 105, troponin negative x 3, BNP 2350, ABG: pH 7.48, pCO2 41, pO2 52, HCO3 30, O2 sat 89% on room air. CXR was obtained that revealed: Prominent interstitial markings in both lungs. Cardiac silhouette enlargement. Pt admitted for CHF exacerbation, noted to have elevated BNP. Will order IV lasix BID. She is currently requiring 2L nasal cannula supplemental oxygen. She is hypertensive. Order IV medications to bring down her BP. Monitor daily weight, UOP. Continue IV lasix. Resume home medications. Monitor BP. Wean O2 as tolerated. Continue to closely monitor and follow up AM labs/imaging. Past Medical History Past Medical History: Anemia, Anxiety, Arthritis, CHF, Coronary Artery Disease, GERD, Hypertension, Kidney Stones, [place] and Renal Disease Past Surgical History Surgical History: Cholecystectomy, Hysterectomy and Ortho Surgery Family History Family Medical History: Cancer and Hypertension Social History Does patient currently use any type of tobacco product: No Have you used tobacco products in the last 12 months: No Type of Tobacco Use: None Does any household member use tobacco: No Alcohol Use: None Drug Use: None Medications Home Medications: Home Medications Medication Instructions Recorded Confirmed Type atorvastatin 40 mg tablet 40 mg PO QDAY 04/07/23 12/01/23 History folic acid 1 mg tablet 1 mg PO QDAY 04/07/23 12/01/23 History apixaban 5 mg tablet (Eliquis) 2.5 mg PO BID 06/10/23 12/01/23 History metoprolol succinate 25 mg 100 mg PO BID 06/10/23 12/01/23 History tablet,extended release 24 hr omeprazole 20 mg capsule,delayed 20 mg PO BID 06/10/23 12/01/23 History release clopidogrel 75 mg tablet 75 mg PO QDAY 06/23/23 12/01/23 History levothyroxine 25 mcg tablet 25 mcg PO QDAY 06/23/23 12/01/23 History isosorbide mononitrate 30 mg 30 mg PO QDAY 09/12/23 12/01/23 History tablet,extended release 24 hr amiodarone 200 mg tablet 200 mg PO QDAY 12/01/23 12/01/23 History Allergies Allergies Allergy/AdvReac Type Severity Reaction Status Date / Time lorazepam [From Ativan] Allergy Unknown Verified 11/17/23 12:47 pantoprazole Allergy Unknown Verified 11/17/23 12:47 promethazine [From Phenergan] Allergy Unknown Verified 11/17/23 12:47 Sulfa (Sulfonamide Allergy Unknown Verified 11/17/23 12:47 Antibiotics) [SULFA] labetalol Allergy Verified 11/17/23 12:47 Labs 12/01/23 01:16 12/01/23 01:16 Labs: Laboratory WBC 7.4 X10^3/uL (3.6-10.0) 12/01/23 01:16 RBC 2.83 X10^6/uL (3.5-5.4) L 12/01/23 01:16 Hgb 9.7 g/dL (12.0-16.0) L 12/01/23 01:16 Hct 29.2 % (36.0-47.0) L 12/01/23 01:16 MCV 103.3 fL (80.0-100.0) H 12/01/23 01:16 MCH 34.3 pg (27.0-34.0) H 12/01/23 01:16 MCHC 33.2 g/dL (33.0-35.0) 12/01/23 01:16 RDW 14.2 % (11.6-16.5) 12/01/23 01:16 Plt Count 203 X10^3/uL (150.0-450.0) 12/01/23 01:16 MPV 9.4 fL (7.4-11.0) 12/01/23 01:16 Neut % (Auto) 73.5 % (42.0-75.0) 12/01/23 01:16 Lymph % (Auto) 17.9 % (21.0-51.0) L 12/01/23 01:16 [place] % (Auto) 5.0 % (0.0-13.0) 12/01/23 01:16 Eos % (Auto) 2.0 % (0.9-2.9) 12/01/23 01:16 Baso % (Auto) 1.6 % (0.2-1.0) H 12/01/23 01:16 Neut # (Auto) 5.5 x10^3/uL (2.2-4.8) H 12/01/23 01:16 Lymph # (Auto) 1.3 X10^3/uL (1.3-2.9) 12/01/23 01:16 [place] # (Auto) 0.4 x10^3/uL (0.3-0.8) 12/01/23 01:16 Eos # (Auto) 0.2 x10^3/uL (0.0-0.2) 12/01/23 01:16 Baso # (Auto) 0.1 X10^3/uL (0.0-0.1) 12/01/23 01:16 Absolute Nucleated RBC 0.0 /100WBC 12/01/23 01:16 Sample Site Lrad 12/01/23 01:10 ABG pH 7.480 (7.35-7.45) H 12/01/23 01:10 ABG pCO2 41.0 mmHg (35.0-45.0) 12/01/23 01:10 ABG pO2 52.0 mmHg (80.0-100.0) L 12/01/23 01:10 ABG HCO3 30.5 mmol/L (22-26) H* 12/01/23 01:10 ABG O2 Saturation 89.0 % (90-100) L 12/01/23 01:10 ABG Base Excess 6.4 mmol/L (-2.0-2.0) H 12/01/23 01:10 Hung Test Pos 12/01/23 01:10 A-a Gradient 46.0 mmHg 12/01/23 01:10 FiO2 21.0 12/01/23 01:10 Blood Gas Comments Pt on room air 12/01/23 01:10 Sodium 143 mmol/L (136-145) 12/01/23 01:16 Corrected Sodium TNP 12/01/23 01:16 Potassium 3.2 mmol/L (3.5-5.1) L 12/01/23 01:16 Chloride 103 mmol/L (98-107) 12/01/23 01:16 Carbon Dioxide 32.1 mmol/L (21-32) H 12/01/23 01:16 BUN 24 mg/dL (7-18) H 12/01/23 01:16 Creatinine 2.19 mg/dL (0.55-1.02) H 12/01/23 01:16 Est GFR (MDRD) Af Amer 28 (>60) L 12/01/23 01:16 Est GFR (MDRD) Non-Af 23 (>60) L 12/01/23 01:16 Glucose 105 mg/dL (65-99) H 12/01/23 01:16 Calcium 8.3 mg/dL (8.5-10.1) L 12/01/23 01:16 Corrected Calcium 9.0 mg/dL (8.5-10.1) 12/01/23 01:16 Total Bilirubin 0.30 mg/dL (0.2-1.0) 12/01/23 01:16 AST 70 Units/L (15-37) H 12/01/23 01:16 ALT 55 Units/L (12-78) 12/01/23 01:16 Alkaline Phosphatase 83 Units/L (46-116) 12/01/23 01:16 Creatine Kinase 161 Units/L (26-192) 12/01/23 03:17 Troponin I High Sens 28.9 ng/L (4.0-60.0) 12/01/23 05:35 B-Natriuretic Peptide 2350 pg/mL (0-79) H 12/01/23 01:16 Total Protein 6.6 g/dL (6.4-8.2) 12/01/23 01:16 Albumin 3.1 g/dL (3.4-5.0) L 12/01/23 01:16 Globulin 3.5 g/dL (2.5-4.5) 12/01/23 01:16 Albumin/Globulin Ratio 0.9 Ratio (1.1-2.1) L 12/01/23 01:16 Review of Systems Constitutional: Weakness Eyes: No Symptoms Reported ENT: No Symptoms Reported Respiratory: Cough and Shortness of Breath Cardiovascular: No Symptoms Reported Gastrointestinal: No Symptoms Reported Genitourinary: No Symptoms Reported Musculoskeletal: No Symptoms Reported Skin: No Symptoms Reported Neurological: No Symptoms Reported Physical Exam Vital Signs: Vital Signs Pulse Rate [Apical] 69 Pulse Rate 69 Pulse Rate 69 Pulse Rate 71 Pulse Rate 72 Pulse Rate 69 Pulse Rate 69 Pulse Rate 69 Pulse Rate 69 Pulse Rate 69 Pulse Rate 69 Pulse Rate 69 Pulse Rate 69 Pulse Rate 69 Pulse Rate 75 Pulse Rate 71 Pulse Rate 69 Pulse Rate 69 Pulse Rate 74 Pulse Rate 74 Pulse Rate 69 Pulse Rate 69 Pulse Rate 69 Pulse Rate 69 Pulse Rate 69 Pulse Rate 69 Pulse Rate 77 Pulse Rate 80 Pulse Rate 87 Pulse Rate 71 Pulse Rate 69 Pulse Rate 70 Pulse Rate 70 Pulse Rate 69 Pulse Rate 69 Pulse Rate 69 Pulse Rate 69 Pulse Rate 69 Pulse Rate 69 Pulse Rate 69 Pulse Rate 69 Pulse Rate 69 Pulse Rate 69 Pulse Rate 69 Pulse Rate 69 Pulse Rate 72 Pulse Rate 74 Pulse Rate 74 Pulse Rate 74 Pulse Rate 74 Pulse Rate 80 Pulse Rate 81 Pulse Rate 83 Pulse Rate 82 Respiratory Rate 17 Respiratory Rate 17 Respiratory Rate 22 Respiratory Rate 18 Respiratory Rate 16 Respiratory Rate 28 Respiratory Rate 14 Respiratory Rate 18 Respiratory Rate 16 Respiratory Rate 15 Respiratory Rate 17 Respiratory Rate 19 Respiratory Rate 14 Respiratory Rate 17 Respiratory Rate 16 Respiratory Rate 26 Respiratory Rate 21 Respiratory Rate 19 Respiratory Rate 18 Respiratory Rate 28 Respiratory Rate 33 Respiratory Rate 25 Respiratory Rate 24 Respiratory Rate 25 Respiratory Rate 28 Respiratory Rate 29 Respiratory Rate 17 Respiratory Rate 23 Respiratory Rate 27 Respiratory Rate 29 Respiratory Rate 33 Respiratory Rate 26 Respiratory Rate 27 Respiratory Rate 25 Respiratory Rate 21 Respiratory Rate 25 Respiratory Rate 16 Respiratory Rate 24 Respiratory Rate 18 Respiratory Rate 19 Respiratory Rate 21 Respiratory Rate 21 Respiratory Rate 20 Respiratory Rate 21 Respiratory Rate 19 Respiratory Rate 21 Respiratory Rate 26 Respiratory Rate 34 Respiratory Rate 54 Respiratory Rate 52 Respiratory Rate 38 Respiratory Rate 40 Respiratory Rate 33 Respiratory Rate 46 Blood Pressure [Right Arm] 188/89 Blood Pressure 194/90 Blood Pressure 194/90 Blood Pressure 184/86 Blood Pressure 170/74 Blood Pressure 175/79 Blood Pressure 186/86 Blood Pressure 188/79 Blood Pressure 195/89 Blood Pressure 180/83 Blood Pressure 184/85 Blood Pressure 187/86 Blood Pressure 194/86 Blood Pressure 180/78 Blood Pressure 193/81 Blood Pressure 181/81 Blood Pressure 188/80 Blood Pressure 201/88 Blood Pressure 165/82 Blood Pressure 186/80 Blood Pressure 209/91 Blood Pressure 193/87 Blood Pressure 181/84 Blood Pressure 188/81 Blood Pressure 183/82 Blood Pressure 189/84 Blood Pressure 196/81 Blood Pressure 167/77 Blood Pressure 189/83 Blood Pressure 173/76 Blood Pressure 160/72 Blood Pressure 167/73 Blood Pressure 187/78 Blood Pressure 176/75 Blood Pressure 187/81 Blood Pressure 180/77 Blood Pressure 187/80 Blood Pressure 180/77 Blood Pressure 189/79 Blood Pressure 168/73 Blood Pressure 188/82 Blood Pressure 199/88 Blood Pressure 202/140 Blood Pressure 209/97 Blood Pressure 214/106 Blood Pressure 209/109 Blood Pressure 213/108 O2 Sat by Pulse Oximetry 100 O2 Sat by Pulse Oximetry 99 O2 Sat by Pulse Oximetry 100 O2 Sat by Pulse Oximetry 100 O2 Sat by Pulse Oximetry 100 O2 Sat by Pulse Oximetry 99 O2 Sat by Pulse Oximetry 99 O2 Sat by Pulse Oximetry 99 O2 Sat by Pulse Oximetry 99 O2 Sat by Pulse Oximetry 99 O2 Sat by Pulse Oximetry 99 O2 Sat by Pulse Oximetry 99 O2 Sat by Pulse Oximetry 98 O2 Sat by Pulse Oximetry 98 O2 Sat by Pulse Oximetry 97 O2 Sat by Pulse Oximetry 97 O2 Sat by Pulse Oximetry 98 O2 Sat by Pulse Oximetry 97 O2 Sat by Pulse Oximetry 97 O2 Sat by Pulse Oximetry 96 O2 Sat by Pulse Oximetry 97 O2 Sat by Pulse Oximetry 97 O2 Sat by Pulse Oximetry 97 O2 Sat by Pulse Oximetry 97 O2 Sat by Pulse Oximetry 96 O2 Sat by Pulse Oximetry 97 O2 Sat by Pulse Oximetry 96 O2 Sat by Pulse Oximetry 94 O2 Sat by Pulse Oximetry 94 O2 Sat by Pulse Oximetry 96 O2 Sat by Pulse Oximetry 97 O2 Sat by Pulse Oximetry 97 O2 Sat by Pulse Oximetry 96 O2 Sat by Pulse Oximetry 96 O2 Sat by Pulse Oximetry 96 O2 Sat by Pulse Oximetry 96 O2 Sat by Pulse Oximetry 96 O2 Sat by Pulse Oximetry 96 O2 Sat by Pulse Oximetry 96 O2 Sat by Pulse Oximetry 96 O2 Sat by Pulse Oximetry 96 O2 Sat by Pulse Oximetry 95 O2 Sat by Pulse Oximetry 95 O2 Sat by Pulse Oximetry 96 O2 Sat by Pulse Oximetry 95 O2 Sat by Pulse Oximetry 96 O2 Sat by Pulse Oximetry 95 O2 Sat by Pulse Oximetry 93 O2 Sat by Pulse Oximetry 93 O2 Sat by Pulse Oximetry 91 O2 Sat by Pulse Oximetry 90 O2 Sat by Pulse Oximetry 90 O2 Sat by Pulse Oximetry 89 O2 Sat by Pulse Oximetry 91 O2 Sat by Pulse Oximetry 92 Oriented: Normal Eyes: Normal Ear: Normal Nose: Normal Throat: Normal Respiratory: Diminished Throughout Cardiovascular: Normal : Normal Auscultation: Bowel Sounds: Normal Palpation: Normal Tenderness: Normal Skin: Normal Musculoskeletal: Normal Psychiatric: Normal Mood Description: Calm and Appropriate Affect: Normal Speech Pattern: Clear and Appropriate Assessment/Plan (1) CHF exacerbation: Status: Acute Plan: IV lasix bid (2) Hypertensive urgency: Status: Acute Review H&P Reviewed: Yes Patient was examined?: Yes
[2023-12-01] MEDS: ENTRESTO 49/51 MG TABLET PO SCH (11:15)
[2023-12-01] MEDS: TOPROL XL PO SCH (11:15)
[2023-12-01] MEDS: CORDARONE TAB 200 MG PO SCH (11:17)
[2023-12-01] MEDS: IMDUR PO SCH (11:17)
[2023-12-01] MEDS: K-DUR TAB 20 MEQ PO SCH (11:59)
[2023-12-01] MEDS: XOPENEX 1.25 MG/3 ML NEBULE NEB SCH (12:21)
[2023-12-01] MEDS: ELIQUIS PO SCH (20:19)
[2023-12-01] MEDS: PULMICORT NEB TX 0.5 MG NEB SCH (20:59)
[2023-12-02] MEDS: NS 250 ML IV 25 ML IV PRN (05:13)
[2023-12-02 05:23] LABS: BASOPHILS % (AUTO) 0.8 % (0.2-1.0); EOSINOPHILS # (AUTO) 0.1 x10^3/uL (0.0-0.2); EOSINOPHILS % (AUTO) 2.1 % (0.9-2.9); HEMATOCRIT 29.1 % (36.0-47.0); HEMOGLOBIN 9.6 g/dL (12.0-16.0); LYMPHOCYTES % (AUTO) 16.9 % (21.0-51.0); MEAN PLATELET VOLUME 9.2 fL (7.4-11.0); MONOCYTES # (AUTO) 0.5 x10^3/uL (0.3-0.8); MONOCYTES % (AUTO) 8.5 % (0.0-13.0); NEUTROPHILS # (AUTO) 4.2 x10^3/uL (2.2-4.8); NEUTROPHILS % (AUTO) 71.7 % (42.0-75.0); PLATELET COUNT 199 X10^3/uL (150.0-450.0); RED BLOOD COUNT 2.83 X10^6/uL (3.5-5.4); RED CELL DISTRIBUTION WIDTH 14.5 % (11.6-16.5); WHITE BLOOD COUNT 5.9 X10^3/uL (3.6-10.0)
[2023-12-02 05:29] LABS: INR 1.24 (0.8-1.3)
[2023-12-02 05:36] LABS: ALANINE AMINOTRANSFERASE 39 Units/L (12-78); ALBUMIN 2.8 g/dL (3.4-5.0); ALKALINE PHOSPHATASE 62 Units/L (46-116); ASPARTATE AMINO TRANSFERASE 30 Units/L (15-37); BLOOD UREA NITROGEN 23 mg/dL (7-18); CALCIUM 8.2 mg/dL (8.5-10.1); CARBON DIOXIDE 33.7 mmol/L (21-32); CHLORIDE 103 mmol/L (98-107); COR CA(FOR HYPOALB) 9.2 mg/dL (8.5-10.1); CREATININE 2.21 mg/dL (0.55-1.02); GLUCOSE 104 mg/dL (65-99); POTASSIUM 3.6 mmol/L (3.5-5.1); SODIUM 142 mmol/L (136-145); TOTAL PROTEIN 6.2 g/dL (6.4-8.2); eGFR NON BLACK RACES 23 (>60)
[2023-12-02] MEDS: CONSULT PHARMACY - POTASSIUM & MAGNESIUM XX SCH (06:59)
[2023-12-02] MEDS: ULTRAM PO PRN (07:13)
--- NOTE | 2023-12-02 07:27 | RAD ---
EXAM:CHEST, 1 VIEWHISTORY:CHF, Pneumonia;COMPARISON:12/01/2023TECHNIQUE: .[email or web address] Cardiomegaly is noted. Decrease in interstitial infiltrates. No new infiltrates. Hilar and mediastinal structures and bony structures are unchanged. EKG leads are present. Skin fold projects over the left lower chest.IMPRESSION:Decrease in interstitial infiltrates. Follow-up recommended.THIS IS AN ELECTRONICALLY VERIFIED FINAL REPORT12/02/2023 7:24 AM - Electronically signed by Rajesh Sprague MD
[2023-12-02] MEDS: FARXIGA PO SCH (09:01)
[2023-12-02] MEDS: SYNTHROID 25 mcg TAB PO SCH (09:01)
[2023-12-02] MEDS: PLAVIX PO SCH (09:02)
[2023-12-02] MEDS: FOLIC ACID TAB 1 MG PO SCH (09:02)
[2023-12-02] MEDS: LIPITOR TAB 40 MG PO SCH (09:03)
[2023-12-02 10:26] VITALS: RESP 23
[2023-12-02 12:40] VITALS: TEMP 97.9
[2023-12-02 14:46] VITALS: BP 92/51; PULSE 70; O2SAT 93
[2023-12-02] MEDS ORDERED: ZOSYN VIAL 3.375 GRAMS 3.375 G in NS 100 ML IV 100 ML IV SCH (21:00)
== END 2023-12-02 15:05 | disposition home or self-care (01) ==
LOC: MED/SURG 00:01 → ICU 00:01 → ER 00:01 → ICU 09:04
PROVIDERS: ADMIT Family Medicine; ATTEND Family Medicine
DX: I50.9 Heart failure, unspecified; R06.02 Shortness of breath; R07.89 Other chest pain; R94.31 Abnormal electrocardiogram [ECG] [EKG]; I16.0 Hypertensive urgency; K21.9 Gastro-esophageal reflux disease without esophagitis; J18.8 Other pneumonia, unspecified organism; E87.6 Hypokalemia; J44.1 Chronic obstructive pulmonary disease with (acute) exacerbation; I11.0 Hypertensive heart disease with heart failure; I25.10 Atherosclerotic heart disease of native coronary artery without angina pectoris

== ENCOUNTER 2024-09-10 09:27 | Observation (INO) ==
--- NOTE | 2024-09-10 09:59 | EKG ---
Test Reason : SOB Blood Pressure : */* mmHG Vent. Rate : 85 BPM Atrial Rate : 85 BPM P-R Int : 168 ms QRS Dur : 160 ms QT Int : 442 ms P-R-T Axes : 45 -24 106 degrees QTc Int : 525 ms Sinus rhythm with occasional premature ventricular complexes Left bundle branch block Abnormal ECG When compared with ECG of 20-JAN-2024 09:53, Sinus rhythm has replaced Electronic atrial pacemaker Confirmed by Garcia Vallecillo MD ([id number]) on 09/10/2024 5:46:45 PM Referred By: Confirmed By: Garcia Vallecillo MD
[2024-09-10 10:06] LABS: BASOPHILS # (AUTO) 0.1 X10^3/uL (0.0-0.1); BASOPHILS % (AUTO) 0.8 % (0.2-1.0); EOSINOPHILS # (AUTO) 0.1 x10^3/uL (0.0-0.2); EOSINOPHILS % (AUTO) 1.6 % (0.9-2.9); HEMATOCRIT 28.9 % (36.0-47.0); HEMOGLOBIN 9.7 g/dL (12.0-16.0); LYMPHOCYTES # (AUTO) 1.1 X10^3/uL (1.3-2.9); LYMPHOCYTES % (AUTO) 13.4 % (21.0-51.0); MEAN CORPUSCULAR HEMOGLOBIN 33.9 pg (27.0-34.0); MEAN CORPUSCULAR HGB CONC 33.6 g/dL (33.0-35.0); MEAN PLATELET VOLUME 8.7 fL (7.4-11.0); MONOCYTES # (AUTO) 0.4 x10^3/uL (0.3-0.8); MONOCYTES % (AUTO) 5.1 % (0.0-13.0); NEUTROPHILS # (AUTO) 6.2 x10^3/uL (2.2-4.8); NEUTROPHILS % (AUTO) 79.1 % (42.0-75.0); PLATELET COUNT 215 X10^3/uL (150.0-450.0); RED BLOOD COUNT 2.86 X10^6/uL (3.5-5.4); WHITE BLOOD COUNT 7.9 X10^3/uL (3.6-10.0)
[2024-09-10] MEDS: APRESOLINE INJ 20 MG VIAL IVP ONE (10:17)
[2024-09-10 10:19] LABS: ALANINE AMINOTRANSFERASE 45 Units/L (12-78); ALBUMIN 3.3 g/dL (3.4-5.0); ALKALINE PHOSPHATASE 83 Units/L (46-116); ASPARTATE AMINO TRANSFERASE 42 Units/L (15-37); BLOOD UREA NITROGEN 16 mg/dL (7-18); CALCIUM 9.4 mg/dL (8.5-10.1); CARBON DIOXIDE 30.6 mmol/L (21-32); CHLORIDE 105 mmol/L (98-107); CREATININE 2.12 mg/dL (0.55-1.02); GLUCOSE 103 mg/dL (65-99); POTASSIUM 3.9 mmol/L (3.5-5.1); SODIUM 143 mmol/L (136-145); TOTAL PROTEIN 6.9 g/dL (6.4-8.2); eGFR NON BLACK RACES 24 (>60)
[2024-09-10] MEDS: LASIX IVP ONE (10:36)
[2024-09-10 10:55] LABS: BILIRUBIN,URINE NEGATIVE (NEGATIVE); BLOOD/HEMOGLOBIN,URINE 1+ (NEGATIVE); GLUCOSE, URINE 3+ (NEGATIVE); KETONES,URINE NEGATIVE (NEGATIVE); LEUKOCYTE ESTERASE ,URINE NEGATIVE (NEGATIVE); NITRITES,URINE NEGATIVE (NEGATIVE); PROTEIN,URINE 2+ (NEGATIVE); UROBILINOGEN,URINE NORMAL (NORMAL)
[2024-09-10] MEDS: ASPIRIN 81 MG CHEWTAB PO ONE (10:55)
[2024-09-10] MEDS: MORPHINE SULFATE INJ 2 MG INJ IVP ONE (10:59)
[2024-09-10 11:09] LABS: APPEARANCE,URINE CLEAR (CLEAR); BACTERIA,URINE NEGATIVE /HPF (NEGATIVE); COLOR,URINE PALE YELLOW (YELLOW); RBC,URINE 0-2 /HPF (0-3); SQUAMOUS EPITHELIAL CELL,UR RARE /HPF (NEGATIVE)
[2024-09-10] MEDS: CATAPRES TAB 0.1 MG PO ONE (12:36)
--- NOTE | 2024-09-10 12:54 | DR.SOBA ---
HPI Time Seen Time Seen by Provider: 09/10/24 10:12 Primary Care Physician Primary Care Physician: Solange Horner NP HPI Comment HPI Comment: Patient with complaint of chest pain and shortness of breath since Saturday. This is worsening gradually. She does have history of congestive heart failure, coronary artery disease with stents, atrial fibrillation and hypertension. Denies fever. Complaints Chief Complaint:: pt presents to the ED ambulatory and states that her heart has been fluttering and has had SOB since Saturday, but it was progressively gotten worse. she also complains of some chest pain that comes and goes COVID-19 Coronavirus risk:travel/contact w/high risk person: No Has patient experienced Coronavirus symptoms: No Source History Provided: Patient Mode of Arrival Mode of Arrival: Ambulatory Timing Onset of Chief Complaint: 09/08/24 PMH PMH Past Medical History: Yes Past Medical History: Anemia, Anxiety, Arthritis, CHF, Coronary Artery Disease, GERD, Hypertension, Kidney Stones, [place] and Renal Disease Past Surgical History: Yes Surgical History: Angioplasty/Stents, Cholecystectomy, Hysterectomy and Ortho Surgery Past Surgical History Comment: pacemaker Family History History of Family Medical Conditions: Yes Family Medical History: Cancer and Hypertension Social History Does patient currently use any type of tobacco product: No Type of Tobacco Use: None Alcohol Use: None Do you use any recreational Drugs:: No Lives With: Spouse Lives Where: Home Travel Risk Coronavirus risk:travel/contact w/high risk person: No Has patient experienced Coronavirus symptoms: No Infectious screening Have you traveled outside the country in the last 6 months?: No Isolation: Standard ROS Review of Systems Constitutional: No Symptoms Reported Eyes: No Symptoms Reported ENTM: No Symptoms Reported Respiratoy: See HPI and Short of Breath; negative Wheezing Cardiovascular: See HPI and Chest Pain Gastrointestinal/Abdominal: No Symptoms Reported Genitourinary: No Symptoms Reported Neurological: No Symptoms Reported Musculoskeletal: No Symptoms Reported Integumentary: No Symptoms Reported Hematologic/Lymphatic: No Symptoms Reported Endocrine: No Symptoms Reported Psychiatric: No Symptoms Reported All Other Systems: Reviewed and Negative PE Vital Signs Vitals: Vital Signs Temperature 97.7 F Pulse Rate 80 Pulse Rate 80 Pulse Rate 82 Pulse Rate 81 Pulse Rate 79 Pulse Rate 81 Pulse Rate 80 Pulse Rate 80 Pulse Rate 84 Pulse Rate 89 Pulse Rate 87 Pulse Rate 83 Pulse Rate 81 Pulse Rate 81 Pulse Rate 84 Pulse Rate 91 Pulse Rate 88 Respiratory Rate 15 Respiratory Rate 17 Respiratory Rate 18 Respiratory Rate 21 Respiratory Rate 16 Respiratory Rate 12 Respiratory Rate 13 Respiratory Rate 10 Respiratory Rate 14 Respiratory Rate 18 Respiratory Rate 22 Respiratory Rate 25 Respiratory Rate 18 Respiratory Rate 14 Respiratory Rate 16 Respiratory Rate 18 Respiratory Rate 20 Respiratory Rate 21 Blood Pressure 210/98 Blood Pressure 190/80 Blood Pressure 206/93 Blood Pressure 206/95 Blood Pressure 192/91 Blood Pressure 188/81 Blood Pressure 196/88 Blood Pressure 206/96 Blood Pressure 197/92 Blood Pressure 206/93 Blood Pressure 206/98 Blood Pressure 219/103 O2 Sat by Pulse Oximetry 96 O2 Sat by Pulse Oximetry 96 O2 Sat by Pulse Oximetry 95 O2 Sat by Pulse Oximetry 97 O2 Sat by Pulse Oximetry 96 O2 Sat by Pulse Oximetry 96 O2 Sat by Pulse Oximetry 97 O2 Sat by Pulse Oximetry 98 O2 Sat by Pulse Oximetry 93 O2 Sat by Pulse Oximetry 98 O2 Sat by Pulse Oximetry 98 O2 Sat by Pulse Oximetry 97 O2 Sat by Pulse Oximetry 98 O2 Sat by Pulse Oximetry 98 O2 Sat by Pulse Oximetry 88 O2 Sat by Pulse Oximetry 96 General Limitations: No Limitations General Appearance: Alert and In No Apparent Distress Head Head Exam: Normal Inspection Eyes Eye exam: Normal Appearance ENT ENT Exam: Normal Exam Neck Neck Exam: Normal Inspection Chest Chest Inspection: Normal Inspection Respiratory Respiratory Exam: Normal Lung Sounds Bilat Respiratory Exam: Bilateral: Clear to Auscultation Cardiovascular Cardiovascular Exam: Regular Rate and Normal Rhythm Abdominal Exam Abdominal Exam: Normal Inspection, Normal Bowel Sounds and Soft Extremities Extremities Exam: Normal Inspection Back Back Exam: Normal Inspection Neurologic Neurological Exam: Alert and Oriented X3 Psychiatric Psychiatric Exam: Normal Affect and Normal Mood Skin Skin Exam: Warm, Dry, Intact and Normal Color COURSE Treatment Treatment: Patient had some mild improvement with treatment in the ER. Given cardiac risk factors patient is agreeable to admission for chest pain rule out. Patient admits she has been drinking more fluids than she supposed to. Noncompliant with medications Consultation Called: 13:05 Consultation Comments: Discussed case with Dr. Greenberg and she is agreeable to admission. [facility] Labs Reviewed 09/10/24 09:55 09/10/24 09:55 Laboratory: WBC 7.9 X10^3/uL (3.6-10.0) 09/10/24 09:55 RBC 2.86 X10^6/uL (3.5-5.4) L 09/10/24 09:55 Hgb 9.7 g/dL (12.0-16.0) L 09/10/24 09:55 Hct 28.9 % (36.0-47.0) L 09/10/24 09:55 MCV 101.0 fL (80.0-100.0) H 09/10/24 09:55 MCH 33.9 pg (27.0-34.0) 09/10/24 09:55 MCHC 33.6 g/dL (33.0-35.0) 09/10/24 09:55 RDW 14.0 % (11.6-16.5) 09/10/24 09:55 Plt Count 215 X10^3/uL (150.0-450.0) 09/10/24 09:55 MPV 8.7 fL (7.4-11.0) 09/10/24 09:55 Neut % (Auto) 79.1 % (42.0-75.0) H 09/10/24 09:55 Lymph % (Auto) 13.4 % (21.0-51.0) L 09/10/24 09:55 [place] % (Auto) 5.1 % (0.0-13.0) 09/10/24 09:55 Eos % (Auto) 1.6 % (0.9-2.9) 09/10/24 09:55 Baso % (Auto) 0.8 % (0.2-1.0) 09/10/24 09:55 Neut # (Auto) 6.2 x10^3/uL (2.2-4.8) H 09/10/24 09:55 Lymph # (Auto) 1.1 X10^3/uL (1.3-2.9) L 09/10/24 09:55 [place] # (Auto) 0.4 x10^3/uL (0.3-0.8) 09/10/24 09:55 Eos # (Auto) 0.1 x10^3/uL (0.0-0.2) 09/10/24 09:55 Baso # (Auto) 0.1 X10^3/uL (0.0-0.1) 09/10/24 09:55 Absolute Nucleated RBC 0.0 /100WBC 09/10/24 09:55 Sodium 143 mmol/L (136-145) 09/10/24 09:55 Corrected Sodium TNP 09/10/24 09:55 Potassium 3.9 mmol/L (3.5-5.1) 09/10/24 09:55 Chloride 105 mmol/L (98-107) 09/10/24 09:55 Carbon Dioxide 30.6 mmol/L (21-32) 09/10/24 09:55 BUN 16 mg/dL (7-18) 09/10/24 09:55 Creatinine 2.12 mg/dL (0.55-1.02) H 09/10/24 09:55 Est GFR (MDRD) Af Amer 29 (>60) L 09/10/24 09:55 Est GFR (MDRD) Non-Af 24 (>60) L 09/10/24 09:55 Glucose 103 mg/dL (65-99) H 09/10/24 09:55 Calcium 9.4 mg/dL (8.5-10.1) 09/10/24 09:55 Corrected Calcium 10.0 mg/dL (8.5-10.1) 09/10/24 09:55 Total Bilirubin 0.50 mg/dL (0.2-1.0) 09/10/24 09:55 AST 42 Units/L (15-37) H 09/10/24 09:55 ALT 45 Units/L (12-78) 09/10/24 09:55 Alkaline Phosphatase 83 Units/L (46-116) 09/10/24 09:55 Creatine Kinase 125 Units/L (26-192) 09/10/24 09:55 Troponin I High Sens 31.1 ng/L (4.0-60.0) 09/10/24 12:16 B-Natriuretic Peptide 2150 pg/mL (0-79) H 09/10/24 09:55 Total Protein 6.9 g/dL (6.4-8.2) 09/10/24 09:55 Albumin 3.3 g/dL (3.4-5.0) L 09/10/24 09:55 Globulin 3.6 g/dL (2.5-4.5) 09/10/24 09:55 Albumin/Globulin Ratio 0.9 Ratio (1.1-2.1) L 09/10/24 09:55 Specimen Type Clean catch urine 09/10/24 10:45 Urine Color Pale yellow (YELLOW) 09/10/24 10:45 Urine Appearance Clear (CLEAR) 09/10/24 10:45 Urine pH 7.0 (5.0 - 8.0) 09/10/24 10:45 Ur Specific [place] 1.015 (1.000-1.030) 09/10/24 10:45 Urine Protein 2+ (NEGATIVE) 09/10/24 10:45 Urine Glucose (UA) 3+ (NEGATIVE) 09/10/24 10:45 Urine Ketones Negative (NEGATIVE) 09/10/24 10:45 Urine Blood 1+ (NEGATIVE) 09/10/24 10:45 Urine Nitrite Negative (NEGATIVE) 09/10/24 10:45 Urine Bilirubin Negative (NEGATIVE) 09/10/24 10:45 Urine Urobilinogen Normal (NORMAL) 09/10/24 10:45 Ur Leukocyte Esterase Negative (NEGATIVE) 09/10/24 10:45 Urine RBC 0-2 /HPF (0-3) 09/10/24 10:45 Urine WBC None seen /HPF (0-5) 09/10/24 10:45 Ur Squamous Epith Cells Rare /HPF (NEGATIVE) 09/10/24 10:45 Urine Bacteria Negative /HPF (NEGATIVE) 09/10/24 10:45 Ur Culture Indicated? No/not indicated 09/10/24 10:45 Opioid Opioid Risk Tool Age (Gus box if 16-45): No History of Preadolescent Sexual Abuse: No Total: 0 Total Score Risk Category: Low Risk Copyright: Hayden HICKEY predicting aberrant behaviors Discharge Plan Diagnosis Discharge Problem: Chest pain, Acute exacerbation of CHF (congestive heart failure) Discharge Plan Patient Disposition: 09 ADMITTED INPATIENT Condition: Stable Prescriptions: No Action atorvastatin 40 mg tablet 80 mg PO QDAY folic acid 1 mg tablet 1 mg PO QDAY clopidogrel 75 mg tablet 75 mg PO QDAY levothyroxine 25 mcg tablet 25 mcg PO QDAY Entresto 49-51 mg Tablet 1 tab PO BID Qty: 60 1RF Rx Instructions: DIET TOLERATED. ACTIVITY TOLERATED. dapagliflozin propanediol [Farxiga] 10 mg Tablet 10 mg PO QDAY Qty: 30 3RF Rx Instructions: TAKE ONE TABLET DAILY spironolactone 25 mg tablet 25 mg PO BID propranolol 10 mg tablet 10 mg PO DAILY famotidine 20 mg tablet 20 mg PO BID albuterol sulfate 90 mcg/actuation HFA aerosol inhaler 1 puff inhalation PRN PRN calcitriol 0.25 mcg capsule 0.25 mcg PO QDAY omeprazole 20 mg capsule,delayed release(DR/EC) 20 mg PO BID Eliquis 5 mg tablet 2.5 mg PO BID amiodarone 200 mg tablet 200 mg PO QDAY Health Concerns: Post Hospitalization: new medications and changes needed to prevent readmission or further decline. Pt educated and given instructions on all concerns. Plan of Treatment: Continue with present treatment and follow up plan. Pt is to keep follow up appointment as instructed and take medications as ordered. Orders to Discharge Patient Discharge Orders: Transfer (Routine); Ordered 09/10/24 Ordered By: Gabriel Mello Follow ups/Referrals Follow ups/Referrals: SOLANGE HORNER [Primary Care Provider] - 3 days Instructions Stand Alone Forms: Find Help Web Site, Post Hospital Follow Up Care
[2024-09-10] MEDS ORDERED: VENTOLIN or PROAIR HFA IN PRN (14:17)
[2024-09-10 14:43] VITALS: BMI 20.9
[2024-09-10] MEDS: CATAPRES TAB 0.1 MG ONE (15:05)
[2024-09-10] MEDS: ASPIRIN 81 MG CHEWTAB ONE (15:05)
[2024-09-10] MEDS: MORPHINE SULFATE INJ 2 MG INJ ONE (15:05)
[2024-09-10] MEDS: LASIX IVP SCH (17:34)
--- NOTE | 2024-09-10 17:50 | EKG ---
Test Reason : chest pain Blood Pressure : */* mmHG Vent. Rate : 75 BPM Atrial Rate : 75 BPM P-R Int : 154 ms QRS Dur : 154 ms QT Int : 500 ms P-R-T Axes : 29 13 114 degrees QTc Int : 558 ms Atrial-paced rhythm Left bundle branch block Abnormal ECG When compared with ECG of 10-SEP-2024 09:55, (Unconfirmed) Electronic atrial pacemaker has replaced Sinus rhythm Confirmed by Garcia Vallecillo MD ([id number]) on 09/10/2024 5:44:10 PM Referred By: Confirmed By: Garcia Vallecillo MD
--- NOTE | 2024-09-10 18:07 | RAD ---
EXAM: CHEST, 1 VIEW HISTORY: SHORTNESS OF BREATH; COMPARISON: 01/20/2024 FINDINGS: The trachea is midline. The cardiac silhouette is enlarged with a tortuous thoracic aorta. A pacing device overlying the left hemithorax is observed. The lungs are clear without focal infiltrate or effusion. The bony thorax is unremarkable. IMPRESSION: No acute cardiopulmonary disease. THIS IS AN ELECTRONICALLY VERIFIED FINAL REPORT 09/10/2024 5:48 PM - Electronically signed by Niles Almodovar MD
[2024-09-10] MEDS: ELIQUIS PO SCH (20:58)
[2024-09-10] MEDS: ALDACTONE TAB 25 MG PO SCH (20:58)
[2024-09-10] MEDS: ENTRESTO 49/51 MG TABLET PO SCH (20:58)
[2024-09-10] MEDS: AMBIEN PO PRN (20:58)
[2024-09-10] MEDS: PriLOSEC PO SCH (20:58)
[2024-09-11] MEDS: ULTRAM PO PRN (00:41)
[2024-09-11 06:28] LABS: BASOPHILS # (AUTO) 0.1 X10^3/uL (0.0-0.1); BASOPHILS % (AUTO) 1.1 % (0.2-1.0); EOSINOPHILS # (AUTO) 0.1 x10^3/uL (0.0-0.2); EOSINOPHILS % (AUTO) 2.1 % (0.9-2.9); HEMATOCRIT 25.2 % (36.0-47.0); HEMOGLOBIN 8.7 g/dL (12.0-16.0); LYMPHOCYTES # (AUTO) 1.1 X10^3/uL (1.3-2.9); LYMPHOCYTES % (AUTO) 22.7 % (21.0-51.0); MEAN CORPUSCULAR HEMOGLOBIN 34.2 pg (27.0-34.0); MEAN CORPUSCULAR HGB CONC 34.6 g/dL (33.0-35.0); MEAN CORPUSCULAR VOLUME 98.9 fL (80.0-100.0); MEAN PLATELET VOLUME 9.1 fL (7.4-11.0); MONOCYTES # (AUTO) 0.4 x10^3/uL (0.3-0.8); MONOCYTES % (AUTO) 9.1 % (0.0-13.0); NEUTROPHILS # (AUTO) 3.2 x10^3/uL (2.2-4.8); PLATELET COUNT 207 X10^3/uL (150.0-450.0); RED BLOOD COUNT 2.55 X10^6/uL (3.5-5.4); RED CELL DISTRIBUTION WIDTH 13.9 % (11.6-16.5); WHITE BLOOD COUNT 4.9 X10^3/uL (3.6-10.0)
[2024-09-11 06:43] LABS: ALANINE AMINOTRANSFERASE 29 Units/L (12-78); ALBUMIN 2.6 g/dL (3.4-5.0); ALKALINE PHOSPHATASE 64 Units/L (46-116); ASPARTATE AMINO TRANSFERASE 26 Units/L (15-37); BLOOD UREA NITROGEN 17 mg/dL (7-18); CALCIUM 8.8 mg/dL (8.5-10.1); CARBON DIOXIDE 33.7 mmol/L (21-32); CHLORIDE 102 mmol/L (98-107); CHOL/HDL RATIO 1.6 (0.0-5.0); CHOLESTEROL 141 mg/dL (0-200); COR CA(FOR HYPOALB) 9.9 mg/dL (8.5-10.1); CREATININE 2.23 mg/dL (0.55-1.02); GLUCOSE 97 mg/dL (65-99); HDL CHOLESTEROL 89 mg/dL (40-60); MAGNESIUM 1.8 mg/dL (2.0-2.9); POTASSIUM 3.3 mmol/L (3.5-5.1); SODIUM 142 mmol/L (136-145); TOTAL PROTEIN 5.9 g/dL (6.4-8.2); TRIGLYCERIDES 40 mg/dL (0-150); eGFR NON BLACK RACES 23 (>60)
[2024-09-11] MEDS ORDERED: CONSULT PHARMACY - POTASSIUM & MAGNESIUM XX SCH (07:00)
[2024-09-11] MEDS: K-DUR TAB 20 MEQ PO SCH (08:33)
[2024-09-11] MEDS: MAG-OX TAB PO ONE (08:33)
[2024-09-11] MEDS: CORDARONE TAB 200 MG PO SCH (08:34)
[2024-09-11] MEDS: INDERAL TAB 10 MG PO SCH (08:34)
[2024-09-11] MEDS: PLAVIX PO SCH (08:34)
[2024-09-11] MEDS: SYNTHROID 25 mcg TAB PO SCH (08:34)
[2024-09-11] MEDS: LIPITOR TAB 40 MG PO SCH (08:34)
[2024-09-11] MEDS: PEPCID TAB 20 MG PO SCH (08:34)
[2024-09-11] MEDS: FARXIGA PO SCH (08:34)
[2024-09-11 10:16] VITALS: BP 151/75; PULSE 79; RESP 19; TEMP 98.1; O2SAT 96
--- NOTE | 2024-09-12 09:46 | DR.SSS ---
SHORT STAY SUMMARY Admission Date Date of Admission: 09/10/24 Discharge Date Discharge Date: 09/11/24 Admission Diagnoses Admission Diagnoses: CHF exacerbation Discharge Diagnoses Discharge Diagnoses: CHF exacerbation Chief Complaint Chief Complaint: shortness of breath weakness History of Present Illness History of Present Illness: Patient is a 79-year-old female with a past medical history of CHF, CAD, atrial fibrillation, hypertension, presenting with shortness of breath and weakness. She reports symptoms have been gradually getting worse over the past 2 to 3 days. Labs/imaging: WBC 4.9, hemoglobin 8.7, platelets 207, sodium 142, potassium 3.3, creatinine 2.23, glucose 97, troponin negative x 3, chest x-ray no acute cardiopulmonary findings, UA negative, BNP 2150. Patient was admitted for CHF exacerbation. She was given IV Lasix 20 mg twice daily. This morning she reports feeling significantly better and back to her baseline. She would like to go home. She is otherwise stable. She is not requiring any oxygen. Will discharge patient in stable condition. Will prescribe her p.o. Lasix to take as needed if she feels short of breath or has lower extremity edema. She is instructed to follow-up with her corporate treasurer Dr. Lynn and her PCP Dave Chase. Past Medical History Past Medical History: Anemia, Anxiety, Arthritis, CHF, Coronary Artery Disease, GERD, Hypertension, Kidney Stones, [place] and Renal Disease Past Surgical History Surgical History: Angioplasty/Stents, Cholecystectomy and Hysterectomy Allergies Allergies Allergy/AdvReac Type Severity Reaction Status Date / Time lorazepam [From Ativan] Allergy Unknown Verified 11/17/23 12:47 pantoprazole Allergy Unknown Verified 11/17/23 12:47 promethazine [From Phenergan] Allergy Unknown Verified 11/17/23 12:47 Sulfa (Sulfonamide Allergy Unknown Verified 11/17/23 12:47 Antibiotics) [SULFA] labetalol Allergy Verified 11/17/23 12:47 Medications Home Medications: lorazepam [From Ativan] Allergy (Unknown, Verified 11/17/23 12:47) pantoprazole Allergy (Unknown, Verified 11/17/23 12:47) promethazine [From Phenergan] Allergy (Unknown, Verified 11/17/23 12:47) Sulfa (Sulfonamide Antibiotics) [SULFA] Allergy (Unknown, Verified 11/17/23 12:47) labetalol Allergy (Verified 11/17/23 12:47) CONTINUE taking the following medications albuterol sulfate 90 mcg/actuation aerosol inhaler 1 puff inhalation PRN PRN 09/10/24 [History] calcitriol 0.25 mcg capsule 0.25 mcg PO QDAY 09/10/24 [History] famotidine 20 mg tablet 20 mg PO BID 09/10/24 [History] propranolol 10 mg tablet 10 mg PO DAILY 09/10/24 [History] spironolactone 25 mg tablet 25 mg PO BID 09/10/24 [History] Family History Family Medical History: Cancer and Coronary Artery Disease Social History Does patient currently use any type of tobacco product: No Type of Tobacco Use: None Does any household member use tobacco: No Alcohol Use: None Drug Use: None Review of Systems Constitutional: Weakness Eyes: No Symptoms Reported ENT: No Symptoms Reported Respiratory: Shortness of Breath Cardiovascular: No Symptoms Reported Gastrointestinal: No Symptoms Reported Genitourinary: No Symptoms Reported Musculoskeletal: No Symptoms Reported Skin: No Symptoms Reported Neurological: No Symptoms Reported Physical Exam Vital Signs: Last Vital Signs Temp 97.9 F 09/11/24 04:00 Pulse 71 09/11/24 04:00 Resp 16 09/11/24 04:00 BP 160/76 09/11/24 04:00 Pulse Ox 93 L 09/11/24 04:00 O2 Del Method Room Air 09/11/24 04:00 O2 Flow Rate 2 09/10/24 20:45 FiO2 28 09/10/24 20:45 Oriented: Normal Eyes: Normal Nose: Normal Throat: Normal Respiratory: Clear Throughout Cardiovascular: Normal : Normal Auscultation: Bowel Sounds: Normal Palpation: Normal Tenderness: Normal Skin: Normal Musculoskeletal: Normal Psychiatric: Normal Speech Pattern: Clear Labs Labs: Laboratory Last Values WBC 4.9 X10^3/uL (3.6-10.0) 09/11/24 05:13 RBC 2.55 X10^6/uL (3.5-5.4) L 09/11/24 05:13 Hgb 8.7 g/dL (12.0-16.0) L 09/11/24 05:13 Hct 25.2 % (36.0-47.0) L 09/11/24 05:13 MCV 98.9 fL (80.0-100.0) 09/11/24 05:13 MCH 34.2 pg (27.0-34.0) H 09/11/24 05:13 MCHC 34.6 g/dL (33.0-35.0) 09/11/24 05:13 RDW 13.9 % (11.6-16.5) 09/11/24 05:13 Plt Count 207 X10^3/uL (150.0-450.0) 09/11/24 05:13 MPV 9.1 fL (7.4-11.0) 09/11/24 05:13 Neut % (Auto) 65.0 % (42.0-75.0) 09/11/24 05:13 Lymph % (Auto) 22.7 % (21.0-51.0) 09/11/24 05:13 [place] % (Auto) 9.1 % (0.0-13.0) 09/11/24 05:13 Eos % (Auto) 2.1 % (0.9-2.9) 09/11/24 05:13 Baso % (Auto) 1.1 % (0.2-1.0) H 09/11/24 05:13 Neut # (Auto) 3.2 x10^3/uL (2.2-4.8) 09/11/24 05:13 Lymph # (Auto) 1.1 X10^3/uL (1.3-2.9) L 09/11/24 05:13 [place] # (Auto) 0.4 x10^3/uL (0.3-0.8) 09/11/24 05:13 Eos # (Auto) 0.1 x10^3/uL (0.0-0.2) 09/11/24 05:13 Baso # (Auto) 0.1 X10^3/uL (0.0-0.1) 09/11/24 05:13 Absolute Nucleated RBC 0.0 /100WBC 09/11/24 05:13 Sodium 142 mmol/L (136-145) 09/11/24 05:13 Corrected Sodium TNP 09/11/24 05:13 Potassium 3.3 mmol/L (3.5-5.1) L 09/11/24 05:13 Chloride 102 mmol/L (98-107) 09/11/24 05:13 Carbon Dioxide 33.7 mmol/L (21-32) H 09/11/24 05:13 BUN 17 mg/dL (7-18) 09/11/24 05:13 Creatinine 2.23 mg/dL (0.55-1.02) H 09/11/24 05:13 Est GFR (MDRD) Af Amer 27 (>60) L 09/11/24 05:13 Est GFR (MDRD) Non-Af 23 (>60) L 09/11/24 05:13 Glucose 97 mg/dL (65-99) 09/11/24 05:13 Calcium 8.8 mg/dL (8.5-10.1) 09/11/24 05:13 Corrected Calcium 9.9 mg/dL (8.5-10.1) 09/11/24 05:13 Magnesium 1.8 mg/dL (2.0-2.9) L 09/11/24 05:13 Total Bilirubin 0.40 mg/dL (0.2-1.0) 09/11/24 05:13 AST 26 Units/L (15-37) 09/11/24 05:13 ALT 29 Units/L (12-78) 09/11/24 05:13 Alkaline Phosphatase 64 Units/L (46-116) 09/11/24 05:13 Creatine Kinase 125 Units/L (26-192) 09/10/24 09:55 Troponin I High Sens 25.8 ng/L (4.0-60.0) 09/11/24 00:28 B-Natriuretic Peptide 2150 pg/mL (0-79) H 09/10/24 09:55 Total Protein 5.9 g/dL (6.4-8.2) L 09/11/24 05:13 Albumin 2.6 g/dL (3.4-5.0) L 09/11/24 05:13 Globulin 3.3 g/dL (2.5-4.5) 09/11/24 05:13 Albumin/Globulin Ratio 0.8 Ratio (1.1-2.1) L 09/11/24 05:13 Triglycerides 40 mg/dL (0-150) 09/11/24 05:13 Cholesterol 141 mg/dL (0-200) 09/11/24 05:13 LDL Cholesterol, Calc 44 mg/dL (0-100) 09/11/24 05:13 HDL Cholesterol 89 mg/dL (40-60) H 09/11/24 05:13 Cholesterol/HDL Ratio 1.6 (0.0-5.0) 09/11/24 05:13 Specimen Type Clean catch urine 09/10/24 10:45 Urine Color Pale yellow (YELLOW) 09/10/24 10:45 Urine Appearance Clear (CLEAR) 09/10/24 10:45 Urine pH 7.0 (5.0 - 8.0) 09/10/24 10:45 Ur Specific [place] 1.015 (1.000-1.030) 09/10/24 10:45 Urine Protein 2+ (NEGATIVE) 09/10/24 10:45 Urine Glucose (UA) 3+ (NEGATIVE) 09/10/24 10:45 Urine Ketones Negative (NEGATIVE) 09/10/24 10:45 Urine Blood 1+ (NEGATIVE) 09/10/24 10:45 Urine Nitrite Negative (NEGATIVE) 09/10/24 10:45 Urine Bilirubin Negative (NEGATIVE) 09/10/24 10:45 Urine Urobilinogen Normal (NORMAL) 09/10/24 10:45 Ur Leukocyte Esterase Negative (NEGATIVE) 09/10/24 10:45 Urine RBC 0-2 /HPF (0-3) 09/10/24 10:45 Urine WBC None seen /HPF (0-5) 09/10/24 10:45 Ur Squamous Epith Cells Rare /HPF (NEGATIVE) 09/10/24 10:45 Urine Bacteria Negative /HPF (NEGATIVE) 09/10/24 10:45 Ur Culture Indicated? No/not indicated 09/10/24 10:45 Assessment/Plan (1) Acute exacerbation of CHF (congestive heart failure): (2) Essential hypertension: (3) CAD (coronary artery disease): (4) Skin tear of right forearm without complication: Hospital Course Hospital Course: Patient is a 79-year-old female with a past medical history of CHF, CAD, atrial fibrillation, hypertension, presenting with shortness of breath and weakness. She reports symptoms have been gradually getting worse over the past 2 to 3 days. Labs/imaging: WBC 4.9, hemoglobin 8.7, platelets 207, sodium 142, potassium 3.3, creatinine 2.23, glucose 97, troponin negative x 3, chest x-ray no acute cardiopulmonary findings, UA negative, BNP 2150. Patient was admitted for CHF exacerbation. She was given IV Lasix 20 mg twice daily. This morning she reports feeling significantly better and back to her baseline. She would like to go home. She did have a skin tear on right forearm that has been sutured for 2 weeks per patient. Area appears healed, sutures were removed. She is otherwise stable. She is not requiring any oxygen. Will discharge patient in stable condition. Will prescribe her p.o. Lasix to take as needed if she feels short of breath or has lower extremity edema. She is instructed to follow- up with her corporate treasurer Dr. Lynn and her PCP Dave Chase. Discharge Medications Discharge Medications: Home Medication List albuterol sulfate 90 mcg/actuation aerosol inhaler 1 puff inhalation PRN PRN 09/10/24 [History] calcitriol 0.25 mcg capsule 0.25 mcg PO QDAY 09/10/24 [History] famotidine 20 mg tablet 20 mg PO BID 09/10/24 [History] propranolol 10 mg tablet 10 mg PO DAILY 09/10/24 [History] spironolactone 25 mg tablet 25 mg PO BID 09/10/24 [History] Prescriptions: Discharge Plan Discharge Plan Patient Disposition: HOME, SELF-CARE Condition: Stable Health Concerns: Post Hospitalization: new medications and changes needed to prevent readmission or further decline. Pt educated and given instructions on all concerns. Care Plan Goals: Problem: Cardiac Complications Goal: Early Recognition of cardiac complications for prompt intervention Instructions: Follow provided instructions. Follow up with primary physician as directed. Contact primary care physician or report to the closest Emergency Room if condition worsens. Plan of Treatment: Continue with present treatment and follow up plan. Pt is to keep follow up appointment as instructed and take medications as ordered. Assessment: No distress noted. Prescriptions: New furosemide 20 mg Tablet 20 mg PO BID PRN (Reason: Shortness Of Breath) Qty: 30 0RF Continued atorvastatin 40 mg tablet 80 mg PO QDAY folic acid 1 mg tablet 1 mg PO QDAY clopidogrel 75 mg tablet 75 mg PO QDAY levothyroxine 25 mcg tablet 25 mcg PO QDAY Entresto 49-51 mg Tablet 1 tab PO BID Qty: 60 1RF Rx Instructions: DIET TOLERATED. ACTIVITY TOLERATED. dapagliflozin propanediol [Farxiga] 10 mg Tablet 10 mg PO QDAY Qty: 30 3RF Rx Instructions: TAKE ONE TABLET DAILY spironolactone 25 mg tablet 25 mg PO BID propranolol 10 mg tablet 10 mg PO DAILY famotidine 20 mg tablet 20 mg PO BID albuterol sulfate 90 mcg/actuation HFA aerosol inhaler 1 puff inhalation PRN PRN calcitriol 0.25 mcg capsule 0.25 mcg PO QDAY omeprazole 20 mg capsule,delayed release(DR/EC) 20 mg PO BID Eliquis 5 mg tablet 2.5 mg PO BID amiodarone 200 mg tablet 200 mg PO QDAY Orders to Discharge Patient Discharge Orders: Discharge (Routine); Ordered 09/11/24 Ordered By: Cade Pak Follow ups/Referrals Follow ups/Referrals: DAVE CHASE [Primary Care Provider] - 09/17/24 9:30 am Instructions Instructions: Shortness of Breath, Adult, [id number], Nonspecific Chest Pain, Adult, [id number], Heart Failure: How to Manage Stand Alone Forms: Find Help Web Site, Post Hospital Follow Up Care
== END 2024-09-11 11:15 | disposition home or self-care (01) ==
LOC: ER 09:27 → MED/SURG 09:27
PROVIDERS: ADMIT Internal Medicine; ATTEND Internal Medicine